=== PATIENT | female | born 1935 | race Asian ===

== ENCOUNTER 2016-10-24 05:52 | Inpatient (IN) | payer MEDICARE, OTHER ==
[2016-10-24 06:44] LABS: ABSOLUTE LYMPHOCYTES (AUTO) 0.9 10^3/uL (0.5-4.7); ABSOLUTE MONOCYTES (AUTO) 0.8 10^3/uL (0.1-1.4); ABSOLUTE NEUT (AUTO) 10.2 10^3/uL (1.7-8.2); BASOPHILS % (AUTO) 0.2 % (0-2); HEMATOCRIT 28.8 % (36.0-47.0); HEMOGLOBIN 9.3 g/dL (12.0-15.5); HGB HCT DIFFERENCE -0.9; LYMPHOCYTES % (AUTO) 7.8 % (13-45); MEAN CORPUSCULAR HEMOGLOBIN 31.8 pg (27.0-33.4); MEAN CORPUSCULAR HGB CONC 32.1 g/dL (32.0-36.0); MEAN CORPUSCULAR VOLUME 99 fl (80-97); MONOCYTES % (AUTO) 6.7 % (3-13); RED BLOOD COUNT 2.91 10^6/uL (3.72-5.28); RED CELL DISTRIBUTION WIDTH 13.6 % (11.5-14.0); SEGMENTED NEUTROPHILS % (AUTO) 85.3 % (42-78); WHITE BLOOD COUNT 11.9 10^3/uL (4.0-10.5)
[2016-10-24] MEDS ORDERED: ONDANSETRON HCL INJ/PF 4 MG/2 ML SDV IV ONE (07:04)
[2016-10-24] MEDS ORDERED: ONDANSETRON HCL INJ/PF 4 MG/2 ML SDV ONE (07:05)
[2016-10-24 07:08] LABS: ALANINE AMINOTRANSFERASE 45 U/L (9-52); ALBUMIN 3.1 g/dL (3.5-5.0); ALKALINE PHOSPHATASE 144 U/L (38-126); ANION GAP 13 (5-19); ASPARTATE AMINO TRANSFERASE 51 U/L (14-36); BILIRUBIN,TOTAL 0.7 mg/dL (0.2-1.3); BLOOD UREA NITROGEN 20 mg/dL (7-20); CALCIUM 8.5 mg/dL (8.4-10.2); CARBON DIOXIDE 28 mmol/L (22-30); CHLORIDE 98 mmol/L (98-107); CREATININE RESULT 0.62 mg/dL (0.52-1.25); GLUCOSE 132 mg/dL (75-110); POTASSIUM 4.4 mmol/L (3.6-5.0); SODIUM 138.6 mmol/L (137-145); TOTAL PROTEIN 5.6 g/dL (6.3-8.2)
--- NOTE | 2016-10-24 07:14 | ER Document Report ---
ED General - General Chief Complaint: Hip Injury Stated Complaint: FALL/LEG INJURY Mode of Arrival: Medic Information source: Patient, Outside Facility Records Notes: 81 yr old female presents with complaints of right hip pain after mechanical fall. pt noted to have hip fracture and transferred here from [facility] for evaluation by her orthopedic physician. TRAVEL OUTSIDE OF THE [place] IN LAST 30 DAYS: No - HPI Onset: Yesterday Onset/Duration: Sudden Quality of pain: Achy Severity: Moderate Pain Level: 2 Associated symptoms: Nausea Exacerbated by: Movement Relieved by: Denies Similar symptoms previously: Yes Recently seen / treated by doctor: Yes - Related Data Allergies/Adverse Reactions: codeine [Codeine] Allergy (Verified 08/24/15 15:01) Vomiting Past Medical History - Social History Smoking Status: Never Smoker Cigarette use (# per day): No Chew tobacco use (# tins/day): No Smoking Education Provided: No Family History: Hypertension - Past Medical History Cardiac Medical History: Reports: Hx Hypercholesterolemia, Hx Hypertension Denies: Hx Coronary Artery Disease, Hx Heart Attack Pulmonary Medical History: Reports: Hx COPD, Hx Pneumonia Denies: Hx Asthma, Hx Bronchitis, Hx Tuberculosis Neurological Medical History: Denies: Hx Cerebrovascular Accident, Hx Seizures GI Medical History: Denies: Hx Hepatitis, Hx Hiatal Hernia, Hx Ulcer Musculoskeltal Medical History: Reports Hx Arthritis Infectious Medical History: Denies: Hx Hepatitis Past Surgical History: Reports: Hx Section, Hx Orthopedic Surgery - orif left femur. Denies: Hx Mastectomy, Hx Open Heart Surgery, Hx Pacemaker - Immunizations Hx Diphtheria, Pertussis, Tetanus Vaccination: Yes Hx Pneumococcal Vaccination: 08/06/14 Review of Systems - Review of Systems Notes: REVIEW OF SYSTEMS: CONSTITUTIONAL : Denies fever, chills, or sweats. Denies recent illness. EENT: Denies eye, ear, throat, or mouth pain or symptoms. Denies nasal or sinus congestion or discharge. Denies throat, tongue, or mouth swelling or difficulty swallowing. CARDIOVASCULAR: Denies chest pain. Denies palpitations or racing or irregular heart beat. Denies ankle edema. RESPIRATORY: Denies cough, cold, or chest congestion. Denies shortness of breath, difficulty breathing, or wheezing. GASTROINTESTINAL: Admits to nausea GENITOURINARY: Denies difficulty urinating, painful urination, burning, frequency, blood in urine, or discharge. FEMALE GENITOURINARY: Denies vaginal bleeding, heavy or abnormal periods, irregular periods. Denies vaginal discharge or odor. MUSCULOSKELETAL: Admits to right hip pain SKIN: Denies rash, lesions or sores. HEMATOLOGIC : Denies easy bruising or bleeding. LYMPHATIC: Denies swollen, enlarged glands. NEUROLOGICAL: Denies confusion or altered mental status. Denies passing out or loss of consciousness. Denies dizziness or lightheadedness. Denies headache. Denies weakness or paralysis or loss of use of either side. Denies problems with gait or speech. Denies sensory loss, numbness, or tingling. Denies seizures. PSYCHIATRIC: Denies anxiety or stress. Denies depression, suicidal ideation, or homicidal ideation. ALL OTHER SYSTEMS REVIEWED AND NEGATIVE. Dictation was performed using [employer] voice recognition software PHYSICAL EXAMINATION: GENERAL: Frail elderly female no acute distress HEAD: Atraumatic, normocephalic. EYES: Pupils equal round and reactive to light, extraocular movements intact, conjunctiva are normal. ENT: Nares patent, oropharynx clear without exudates. Moist mucous membranes. NECK: Normal range of motion, supple without lymphadenopathy LUNGS: Breath sounds clear to auscultation bilaterally and equal. No wheezes rales or rhonchi. HEART: Regular rate and rhythm without murmurs ABDOMEN: Soft, nontender, nondistended abdomen. No guarding, no rebound. No masses appreciated. Female : deferred Musculoskeletal: Right hip deformity noted NEUROLOGICAL: Cranial nerves grossly intact. Normal speech, normal gait. Normal sensory, motor exams PSYCH: Normal mood, normal affect. SKIN: Warm, Dry, normal turgor, no rashes or lesions noted. Course - Re-evaluation Re-evalutation: 10/24/16 07:18 Patient was evaluated by her orthopedic physician, I have paged her primary care physician for admission lab work imaging note no other significant abnormalities at this time - Laboratory Result Diagrams: 10/24/16 06:20 10/24/16 06:20 Laboratory results interpreted by me: 10/24/16 10/24/16 06:20 06:20 WBC 11.9 H RBC 2.91 L Hgb 9.3 L Hct 28.8 L MCV 99 H Seg Neutrophils % 85.3 H Lymphocytes % 7.8 L Absolute Neutrophils 10.2 H Glucose 132 H AST 51 H Alkaline Phosphatase 144 H Total Protein 5.6 L Albumin 3.1 L - EKG Interpretation by Me EKG shows normal: Sinus rhythm, [place], Intervals, QRS Complexes [place]/QRS: RBBB Discharge - Discharge Clinical Impression: Nausea Closed fracture of right hip Qualifiers: Encounter type: initial encounter Qualified Code(s): S72.001A - Fracture of unspecified part of neck of right femur, initial encounter for closed fracture Condition: Stable Disposition: ADMITTED INPATIENT Admitting Provider: [facility] Admitted: Telemetry
[2016-10-24 07:55] LABS: PROTHROMBIN TIME 13.9 SEC (11.4-15.4)
[2016-10-24 07:56] LABS: PARTIAL THROMBOPLASTIN TIME 21.3 SEC (23.5-35.8)
--- NOTE | 2016-10-24 08:10 | EKG REPORT ---
SEVERITY:- ABNORMAL ECG - SINUS RHYTHM RIGHT BUNDLE BRANCH BLOCK + LPFB : Confirmed by: Justin Huynh MD 24-Oct-2016 08:09:55
[2016-10-24] MEDS ORDERED: NORMAL SALINE 1000 ML 1,000 ML IV PRN (08:56)
--- NOTE | 2016-10-24 09:35 | PDOC H&P ---
History of Present Illness Admission Date/PCP: 10/24/16 07:32 Patient complains of: pain R hip History of Present Illness: SANDIE BRYSON is a 81 year old female. 2d slipped in bathroom onto R hip. [employer] xr intertrochanteric fracture. Dr Kirkland agreed to fix. 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 Denies: Asthma, Bronchitis, Tuberculosis EENT Medical History: Reports: None Neurological Medical History: Reports: None Endocrine Medical History: Reports: None Renal/ Medical History: Reports: Nephrolithiasis Malignancy Medical History: Reports: None GI Medical History: Denies: Hepatitis, Peptic Ulcer Disease Musculoskeltal Medical History: Reports: Arthritis, Other - compresstion fractures T8 to L5 x T10 on reclast Psychiatric Medical History: Reports: None Traumatic Medical History: Reports: None Hematology: Reports: None Infectious Medical History: Reports: None Past Surgical History Past Surgical History: Reports: Section, Orthopedic Surgery - orif left femur, Other - L pneumonectomy Denies: Amputation, Mastectomy, Pacemaker Social History Information Source: Office Lives with: Alone Smoking Status: Never Smoker Frequency of Alcohol Use: Occasional Hx Recreational Drug Use: No Hx Prescription Drug Abuse: No Family History Family History: CVA, Hypertension Parental Family History Reviewed: Yes Children Family History Reviewed: Yes Sibling(s) Family History Reviewed.: Yes Medication/Allergy Home Medications: Albuterol Sulfate [Ventolin 0.042% Neb 1.25 mg/3 mL Ampul] 2 puff IH QID PRN Latanoprost [Xalatan 0.005% Oph Soln 2.5 ml] 1 drop OP QHS 06/03/14 Tiotropium [place] [Spiriva Handihaler 18 mcg/dose (30 Dose)] 18 mcg PO DAILY Diltiazem HCl [Diltiazem ER] 120 mg PO DAILY 03/08/15 Atorvastatin Calcium 20 mg PO DAILY 10/24/16 Fluticasone/Salmeterol [Advair 250-50 Diskus 28 dose] 1 inh IH Q12H 10/24/16 Tiotropium [place] [Spiriva Handihaler 18 mcg/dose (30 Dose)] 1 cap IH DAILY Allergies/Adverse Reactions: codeine [Codeine] Allergy (Verified 08/24/15 15:01) Vomiting Review of Systems Constitutional: PRESENT: weight loss. ABSENT: fever(s), headache(s) Nose, Mouth, and Throat: ABSENT: sore throat Cardiovascular: PRESENT: dyspnea on exertion. ABSENT: chest pain, orthropnea Respiratory: PRESENT: cough Gastrointestinal: PRESENT: nausea. ABSENT: abdominal pain, constipation, diarrhea, hematochezia, melena Genitourinary: ABSENT: dysuria, hematuria Musculoskeletal: PRESENT: deformity - RH Integumentary: PRESENT: wounds - RE abrasion Neurological: PRESENT: as per HPI Physical Exam Vital Signs: Temp Pulse Resp BP Pulse Ox 97.5 F 90 20 124/55 L 100 10/24/16 08:48 10/24/16 08:48 10/24/16 08:48 10/24/16 08:48 10/24/16 08:48 General appearance: PRESENT: no acute distress Neck exam: PRESENT: tracheal deviation - R. ABSENT: lymphadenopathy, tenderness , thyromegaly Respiratory exam: PRESENT: clear to auscultation home, other - decreased L breath sound Cardiovascular exam: PRESENT: systolic murmur - gr2 difuse. ABSENT: diastolic murmur, irregular rhythm Murmur grade: 2 GI/Abdominal exam: PRESENT: other - bladder big. ABSENT: mass, organolmegaly, tenderness Musculoskeletal exam: PRESENT: deformity - R foot everted, tenderness - R hip Neurological exam: PRESENT: alert, oriented to situation Psychiatric exam: PRESENT: appropriate affect Skin exam: PRESENT: abrasion - R elbow Results Laboratory Results: Abnormal - 24 hr 10/24/16 10/24/16 10/24/16 06:20 06:20 06:20 WBC 11.9 H RBC 2.91 L Hgb 9.3 L Hct 28.8 L MCV 99 H Seg Neutrophils % 85.3 H Lymphocytes % 7.8 L Absolute Neutrophils 10.2 H APTT 21.3 L Glucose 132 H AST 51 H Alkaline Phosphatase 144 H Total Protein 5.6 L Albumin 3.1 L Impressions: Chest X-Ray 10/24/16 06:06 IMPRESSION: NO ACUTE RADIOGRAPHIC FINDING IN THE CHEST. Assessment & Plan - Diagnosis (1) Closed displaced intertrochanteric fracture of right femur Qualifiers: Encounter type: initial encounter Qualified Code(s): S72.141A - Displaced intertrochanteric fracture of right femur, initial encounter for closed fracture Is this a current diagnosis for this admission?: YesPlan: surgery tomorrow annia bryant
[2016-10-24] MEDS ORDERED: OXYCODONE-ACETAMINOPHEN 5-325 MG TABLET PO PRN (10:07)
[2016-10-24] MEDS: FAMOTIDINE INJ/PF 20 MG/2 ML SDV IV SCH ×2 (10:31→22:01)
[2016-10-24] MEDS: OXYCODONE-ACETAMINOPHEN 5-325 MG TABLET PO PRN ×2 (15:37→19:25)
[2016-10-24] MEDS: ONDANSETRON HCL INJ/PF 4 MG/2 ML SDV IV PRN (19:24)
[2016-10-25] MEDS ORDERED: RINGERS SOLUTION,LACTATED 1,000 ML IV PRN
[2016-10-25] MEDS: OXYCODONE-ACETAMINOPHEN 5-325 MG TABLET PO PRN (01:54)
[2016-10-25] MEDS: ONDANSETRON HCL INJ/PF 4 MG/2 ML SDV IV PRN (01:56)
[2016-10-25] MEDS ORDERED: CEFAZOLIN 2 GM/D5W RTU 2 GM/50 ML RTUPB IV PRN (05:00)
--- NOTE | 2016-10-25 06:31 | PDOC PROGRESS REPORT ---
Subjective Progress Note for:: 10/25/16 Subjective:: Patient grateful for the care she is receiving Physical Exam Vital Signs: Temp Pulse Resp BP Pulse Ox 36.9 C 96 20 128/57 H 99 10/25/16 05:52 10/25/16 05:52 10/25/16 05:52 10/25/16 05:52 10/25/16 05:52 Intake & Output 10/23/16 10/24/16 10/25/16 06:59 06:59 06:59 Intake Total 600 Output Total 630 Balance -30 Weight 43 kg General appearance: PRESENT: mild distress Respiratory exam: PRESENT: unlabored Murmur grade: 2 Pulses: PRESENT: +1 pedal pulses bilateral GI/Abdominal exam: PRESENT: soft Results Impressions: Chest X-Ray 10/24/16 06:06 IMPRESSION: NO ACUTE RADIOGRAPHIC FINDING IN THE CHEST. Assessment & Plan - Diagnosis (1) Closed displaced intertrochanteric fracture of right femur Qualifiers: Encounter type: initial encounter Qualified Code(s): S72.141A - Displaced intertrochanteric fracture of right femur, initial encounter for closed fracture Is this a current diagnosis for this admission?: YesPlan: Plan for open reduction internal fixation of her right intratrochanteric femur fracture. Today under choice anesthesia - Time Time Spent with patient: 15-24 minutes Anticipated discharge: SNF Within: within 48 hours
--- NOTE | 2016-10-25 07:06 | PDOC PROGRESS REPORT ---
Subjective Progress Note for:: 10/25/16 Subjective:: pain controlled Physical Exam Vital Signs: Temp Pulse Resp BP Pulse Ox 98.4 F 96 20 128/57 H 99 10/25/16 05:52 10/25/16 05:52 10/25/16 05:52 10/25/16 05:52 10/25/16 05:52 Intake & Output 10/23/16 10/24/16 10/25/16 07:59 07:59 07:59 Intake Total 600 Output Total 630 Balance -30 Weight 94 lb 12.78 oz General appearance: PRESENT: no acute distress Respiratory exam: PRESENT: clear to auscultation home Cardiovascular exam: ABSENT: diastolic murmur, irregular rhythm, systolic murmur Murmur grade: 2 GI/Abdominal exam: ABSENT: mass, organolmegaly, tenderness Extremities exam: ABSENT: pedal edema Neurological exam: PRESENT: oriented to situation Psychiatric exam: PRESENT: appropriate affect Results Laboratory Results: Abnormal - 24 hr 10/24/16 10/24/16 06:20 06:20 APTT 21.3 L Glucose 132 H AST 51 H Alkaline Phosphatase 144 H Total Protein 5.6 L Albumin 3.1 L Impressions: Chest X-Ray 10/24/16 06:06 IMPRESSION: NO ACUTE RADIOGRAPHIC FINDING IN THE CHEST. Assessment & Plan - Diagnosis (1) Closed displaced intertrochanteric fracture of right femur Qualifiers: Encounter type: initial encounter Qualified Code(s): S72.141A - Displaced intertrochanteric fracture of right femur, initial encounter for closed fracture Is this a current diagnosis for this admission?: YesPlan: orif
[2016-10-25] MEDS ORDERED: MIDAZOLAM 2 MG/2 ML INJ ONE (07:27)
[2016-10-25] MEDS ORDERED: PROPOFOL INJ 200 MG/20 ML VIAL IV ONE (07:28)
[2016-10-25] MEDS ORDERED: DEXMEDETOMIDINE INJ 80 MCG/20 ML VIAL IV ONE (07:28)
[2016-10-25] MEDS ORDERED: ACETAMINOPHEN 100 ML IV ONE (07:28)
[2016-10-25] MEDS ORDERED: FENTANYL CITRATE INJ/PF 100 MCG/2 ML AMPUL ONE (07:29)
[2016-10-25] MEDS ORDERED: MORPHINE SULFATE 10 MG/ML INJ ONE (07:29)
[2016-10-25] MEDS ORDERED: MEPERIDINE HCL/PF INJ 25 MG/1 ML DISP.SYRIN IV PRN (08:40)
[2016-10-25] MEDS ORDERED: DIPHENHYDRAMINE HCL 50 MG/ML VIAL IV PRN (08:40)
[2016-10-25] MEDS ORDERED: FENTANYL CITRATE INJ/PF 100 MCG/2 ML AMPUL IV PRN ×3 (08:40)
[2016-10-25] MEDS ORDERED: OXYCODONE-ACETAMINOPHEN 5-325 MG TABLET PO PRN ×2 (08:40)
[2016-10-25] MEDS ORDERED: MORPHINE SULFATE 10 MG/ML INJ IV PRN ×3 (08:40→20:00)
[2016-10-25] MEDS ORDERED: PROMETHAZINE HCL INJ 25 MG/1 ML VIAL IV PRN ×2 (08:40)
--- NOTE | 2016-10-25 09:00 | Operative Report ---
Operative Report DATE OF SURGERY: 10/25/16 PREOPERATIVE DIAGNOSIS: Right proximal femur fracture OPERATION: Open reduction internal fixation of right proximal femur fracture SURGEON: MAIRA MCCRACKEN ANESTHESIA: GA ESTIMATED BLOOD LOSS: 200 PROCEDURE: With the patient supine on the fracture table the right lower extremity is prepped and draped in sterile fashion. The limb is manipulated under fluoroscopic guidance. It's relatively easy to get an anatomic reduction in the AP view but and a lateral view. There is a significant amount of flexion of the proximal fragment. Due to the psoas remaining attached. The patient is placed percutaneously through the greater trochanter. A small incision is made and a combined reamers. Fat used to fashion a cortical opening. Next longitudinal incision was made just distal to the trochanteric ridge. Under direct visualization a reduction of the flexed proximal fragment and elevation of the lagging posterior fragment or perform such that a ball- tipped guidewire can be placed across the fracture. Femoral canal length is measured to be 320 mm. Subsequently a Christa gamma 3 11 x 3 20 x 130 nail was placed over the ball-tipped guide cordelia to divide adequate depth the proximal interlock. Subsequently a 100 mm proximal interlock is placed. Under freehand with fluoroscopic guidance a 45 mm distal interlock is placed. All wounds irrigated and closed using interrupted Vicryl followed by go. A sterile dressing is applied and the patient's returned to PACU in satisfactory condition.
[2016-10-25] MEDS: FAMOTIDINE INJ/PF 20 MG/2 ML SDV IV SCH ×2 (10:12→22:54)
[2016-10-25] MEDS ORDERED: METOCLOPRAMIDE HCL INJ/PF 10 MG/2 ML SDV ONE (13:51)
[2016-10-25] MEDS ORDERED: PHENYLEPHRINE HCL INJ/PF 10 MG/1 ML SDV ONE (13:51)
[2016-10-25] MEDS ORDERED: ONDANSETRON HCL INJ/PF 4 MG/2 ML SDV ONE (13:51)
[2016-10-25] MEDS ORDERED: LIDOCAINE 2% INJ-PF (20 MG/ML) 10 ML AMPUL ONE (13:51)
[2016-10-25] MEDS ORDERED: GLYCOPYRROLATE INJ 0.4 MG/2 ML VIAL ONE (13:51)
[2016-10-25] MEDS: CEFAZOLIN 2 GM/D5W RTU 2 GM/50 ML RTUPB IV SCH ×2 (15:45→23:32)
[2016-10-25] MEDS: ACETAMINOPHEN 100 ML IV SCH ×2 (15:45→22:50)
[2016-10-25] MEDS: MORPHINE SULFATE 10 MG/ML INJ IV PRN (23:56)
[2016-10-26] MEDS ORDERED: FUROSEMIDE INJ/PF 20 MG/2 ML SDV ONE ×2 (02:15→22:24)
[2016-10-26] MEDS: MORPHINE SULFATE 10 MG/ML INJ IV PRN ×2 (04:45→23:08)
[2016-10-26 06:08] LABS: ABSOLUTE MONOCYTES (AUTO) 1.1 10^3/uL (0.1-1.4); ABSOLUTE NEUT (AUTO) 7.6 10^3/uL (1.7-8.2); BASOPHILS % (AUTO) 0.2 % (0-2); HEMATOCRIT 15.6 % (36.0-47.0); HGB HCT DIFFERENCE -0.3; LYMPHOCYTES % (AUTO) 10.3 % (13-45); MEAN CORPUSCULAR HEMOGLOBIN 32.5 pg (27.0-33.4); MEAN CORPUSCULAR HGB CONC 32.4 g/dL (32.0-36.0); MEAN CORPUSCULAR VOLUME 100 fl (80-97); MONOCYTES % (AUTO) 11.1 % (3-13); RED BLOOD COUNT 1.56 10^6/uL (3.72-5.28); SEGMENTED NEUTROPHILS % (AUTO) 78.4 % (42-78); WHITE BLOOD COUNT 9.7 10^3/uL (4.0-10.5)
[2016-10-26 06:22] LABS: ANION GAP 8 (5-19); BLOOD UREA NITROGEN 22 mg/dL (7-20); CALCIUM 7.5 mg/dL (8.4-10.2); CARBON DIOXIDE 28 mmol/L (22-30); CHLORIDE 99 mmol/L (98-107); GLUCOSE 107 mg/dL (75-110); POTASSIUM 4.6 mmol/L (3.6-5.0); SODIUM 134.7 mmol/L (137-145)
[2016-10-26] MEDS: OXYCODONE HCL IR 5 MG TABLET PO PRN (06:35)
[2016-10-26] MEDS ORDERED: RINGERS SOLUTION,LACTATED 1,000 ML IV PRN (07:03)
--- NOTE | 2016-10-26 07:09 | PDOC PROGRESS REPORT ---
Subjective Progress Note for:: 10/26/16 Subjective:: R hip pain Physical Exam Vital Signs: Temp Pulse Resp BP Pulse Ox 97.9 F 120 H 28 H 121/60 95 10/26/16 02:07 10/26/16 02:07 10/26/16 02:07 10/26/16 02:07 10/26/16 02:07 Intake & Output 10/24/16 10/25/16 10/26/16 07:59 07:59 07:59 Intake Total 600 4160 Output Total 630 1325 Balance -30 2835 Weight 94 lb 12.78 oz General appearance: PRESENT: no acute distress Respiratory exam: PRESENT: clear to auscultation home Cardiovascular exam: PRESENT: systolic murmur. ABSENT: diastolic murmur, irregular rhythm Murmur grade: 3 Pulses: PRESENT: +1 pedal pulses bilateral GI/Abdominal exam: ABSENT: mass, organolmegaly, tenderness Extremities exam: PRESENT: joint swelling - R hip hematoma:bruise & swelling twice the size of L hip. ABSENT: pedal edema Neurological exam: ABSENT: oriented to situation Results Laboratory Results: 10/26/16 05:31 10/26/16 05:31 Sodium 134.7 L Potassium 4.6 Chloride 99 Carbon Dioxide 28 Anion Gap 8 BUN 22 H Creatinine 0.80 Est GFR ( Amer) > 60 Est GFR (Non-Af Amer) > 60 Glucose 107 Calcium 7.5 L Impressions: Chest X-Ray 10/24/16 06:06 IMPRESSION: NO ACUTE RADIOGRAPHIC FINDING IN THE CHEST. Fluoroscopy 10/25/16 00:00 IMPRESSION: Intra procedural imaging and fluoro Hip X-Ray 10/25/16 00:00 IMPRESSION: Intra procedural imaging and fluoro Assessment & Plan - Diagnosis (1) Closed displaced intertrochanteric fracture of right femur Qualifiers: Encounter type: initial encounter Qualified Code(s): S72.141A - Displaced intertrochanteric fracture of right femur, initial encounter for closed fracture Is this a current diagnosis for this admission?: YesPlan: suspect hematoma. May need prbc when lab done (2) Dyspnea Qualifiers: Dyspnea type: shortness of breath Qualified Code(s): R06.02 - Shortness of breath Is this a current diagnosis for this admission?: YesPlan: R28 till furosemide 20iv. No rales. I slowed iv to 100
[2016-10-26 07:18] LABS: HEMOGLOBIN 5.1 g/dL (12.0-15.5)
[2016-10-26] MEDS ORDERED: NORMAL SALINE 250 ML IV PRN (07:21)
--- NOTE | 2016-10-26 07:56 | PDOC PROGRESS REPORT ---
Subjective Progress Note for:: 10/26/16 Subjective:: Patient had significant pain last night but seems to be much more comfortable this morning Physical Exam Vital Signs: Temp Pulse Resp BP Pulse Ox 36.6 C 120 H 28 H 121/60 95 10/26/16 02:07 10/26/16 02:07 10/26/16 02:07 10/26/16 02:07 10/26/16 02:07 Intake & Output 10/25/16 10/26/16 10/27/16 06:59 06:59 06:59 Intake Total 600 4160 Output Total 630 1325 Balance -30 2835 Weight 43 kg General appearance: PRESENT: mild distress Head exam: PRESENT: normocephalic Eye exam: PRESENT: EOMI Respiratory exam: PRESENT: unlabored Cardiovascular exam: PRESENT: RRR Murmur grade: 3 Pulses: PRESENT: +1 pedal pulses bilateral Vascular exam: PRESENT: normal capillary refill GI/Abdominal exam: PRESENT: soft Rectal exam: PRESENT: deferred Extremities exam: PRESENT: other - Right lower extremity dressings with moderate drainage, and that have been reinforced. Leg lengths are equal. Neurovascular examinations intact. Neurological exam: PRESENT: alert, oriented to person, oriented to place, oriented to situation Psychiatric exam: PRESENT: appropriate affect Results Laboratory Results: 10/26/16 05:31 10/26/16 05:31 10/26/16 10/26/16 05:31 05:31 WBC 9.7 RBC 1.56 L Hgb 5.1 L D Hct 15.6 L MCV 100 H MCH 32.5 MCHC 32.4 RDW 14.0 Plt Count 221 Seg Neutrophils % 78.4 H Lymphocytes % 10.3 L Monocytes % 11.1 Eosinophils % 0.0 Basophils % 0.2 Absolute Neutrophils 7.6 Absolute Lymphocytes 1.0 Absolute Monocytes 1.1 Absolute Eosinophils 0.0 Absolute Basophils 0.0 Sodium 134.7 L Potassium 4.6 Chloride 99 Carbon Dioxide 28 Anion Gap 8 BUN 22 H Creatinine 0.80 Est GFR ( Amer) > 60 Est GFR (Non-Af Amer) > 60 Glucose 107 Calcium 7.5 L Impressions: Chest X-Ray 10/24/16 06:06 IMPRESSION: NO ACUTE RADIOGRAPHIC FINDING IN THE CHEST. Fluoroscopy 10/25/16 00:00 IMPRESSION: Intra procedural imaging and fluoro Hip X-Ray 10/25/16 00:00 IMPRESSION: Intra procedural imaging and fluoro Status: Imported from PACS Assessment & Plan - Diagnosis (1) Closed displaced intertrochanteric fracture of right femur Qualifiers: Encounter type: initial encounter Qualified Code(s): S72.141A - Displaced intertrochanteric fracture of right femur, initial encounter for closed fracture Is this a current diagnosis for this admission?: YesPlan: 81-year-old female postop day 1 from right proximal femoral fracture open reduction internal fixation. Plan for mobilization with physical therapy and weightbearing as tolerated basis. (2) Acute blood loss as cause of postoperative anemia Is this a current diagnosis for this admission?: YesPlan: 81-year-old female status post open reduction internal fixation of a right proximal femur fracture now with a postoperative hematocrit of 15%. As a result of preoperative hematoma, intraoperative blood loss, and postoperative blood loss and hematoma. Plan for transfusion of 2 units of packed red blood cells. - Time Time Spent with patient: 15-24 minutes Anticipated discharge: SNF Within: within 72 hours
[2016-10-26] MEDS: FAMOTIDINE INJ/PF 20 MG/2 ML SDV IV SCH ×2 (10:51→23:10)
[2016-10-26 22:11] LABS: ABSOLUTE LYMPHOCYTES (AUTO) 1.1 10^3/uL (0.5-4.7); ABSOLUTE MONOCYTES (AUTO) 1.4 10^3/uL (0.1-1.4); ABSOLUTE NEUT (AUTO) 9.8 10^3/uL (1.7-8.2); BASOPHILS % (AUTO) 0.1 % (0-2); HGB HCT DIFFERENCE 0.1; LYMPHOCYTES % (AUTO) 8.7 % (13-45); MEAN CORPUSCULAR HEMOGLOBIN 31.7 pg (27.0-33.4); MEAN CORPUSCULAR HGB CONC 33.3 g/dL (32.0-36.0); MONOCYTES % (AUTO) 11.4 % (3-13); RED BLOOD COUNT 2.73 10^6/uL (3.72-5.28); RED CELL DISTRIBUTION WIDTH 15.1 % (11.5-14.0); SEGMENTED NEUTROPHILS % (AUTO) 79.8 % (42-78); WHITE BLOOD COUNT 12.2 10^3/uL (4.0-10.5)
[2016-10-26 22:20] LABS: HEMOGLOBIN 8.7 g/dL (12.0-15.5); MEAN CORPUSCULAR VOLUME 95 fl (80-97)
[2016-10-26] MEDS ORDERED: FUROSEMIDE INJ/PF 20 MG/2 ML SDV IV ONE (22:30)
[2016-10-27] MEDS: OXYCODONE HCL IR 5 MG TABLET PO PRN ×3 (05:01→18:07)
--- NOTE | 2016-10-27 06:33 | PDOC PROGRESS REPORT ---
Subjective Progress Note for:: 10/27/16 Subjective:: sleeping Physical Exam Vital Signs: Temp Pulse Resp BP Pulse Ox 98.1 F 114 H 20 115/57 L 100 10/27/16 00:34 10/27/16 02:00 10/27/16 00:34 10/27/16 00:34 10/27/16 00:34 Intake & Output 10/25/16 10/26/16 10/27/16 07:59 07:59 07:59 Intake Total 600 4515 1362 Output Total 630 1925 900 Balance -30 2590 462 Weight 94 lb 12.78 oz 107 lb 12.897 oz 107 lb 5.842 oz General appearance: PRESENT: no acute distress Respiratory exam: PRESENT: clear to auscultation home Cardiovascular exam: PRESENT: systolic murmur. ABSENT: diastolic murmur, irregular rhythm Murmur grade: 2 GI/Abdominal exam: ABSENT: mass, organolmegaly, tenderness Extremities exam: PRESENT: joint swelling - hematoma L hip smaller. ABSENT: pedal edema Results Laboratory Results: 10/26/16 21:12 10/26/16 05:31 10/26/16 10/26/16 10/26/16 05:31 05:31 08:04 WBC 9.7 RBC 1.56 L Hgb 5.1 L D Hct 15.6 L MCV 100 H MCH 32.5 MCHC 32.4 RDW 14.0 Plt Count 221 Seg Neutrophils % 78.4 H Lymphocytes % 10.3 L Monocytes % 11.1 Eosinophils % 0.0 Basophils % 0.2 Absolute Neutrophils 7.6 Absolute Lymphocytes 1.0 Absolute Monocytes 1.1 Absolute Eosinophils 0.0 Absolute Basophils 0.0 Sodium 134.7 L Potassium 4.6 Chloride 99 Carbon Dioxide 28 Anion Gap 8 BUN 22 H Creatinine 0.80 Est GFR ( Amer) > 60 Est GFR (Non-Af Amer) > 60 Glucose 107 Calcium 7.5 L Blood Type A POSITIVE Antibody Screen NEGATIVE 10/26/16 21:12 WBC 12.2 H RBC 2.73 L Hgb 8.7 L D Hct 26.0 L MCV 95 D MCH 31.7 MCHC 33.3 RDW 15.1 H Plt Count 206 Seg Neutrophils % 79.8 H Lymphocytes % 8.7 L Monocytes % 11.4 Eosinophils % 0.0 Basophils % 0.1 Absolute Neutrophils 9.8 H Absolute Lymphocytes 1.1 Absolute Monocytes 1.4 Absolute Eosinophils 0.0 Absolute Basophils 0.0 Sodium Potassium Chloride Carbon Dioxide Anion Gap BUN Creatinine Est GFR ( Amer) Est GFR (Non-Af Amer) Glucose Calcium Blood Type Antibody Screen Impressions: Chest X-Ray 10/24/16 06:06 IMPRESSION: NO ACUTE RADIOGRAPHIC FINDING IN THE CHEST. Fluoroscopy 10/25/16 00:00 IMPRESSION: Intra procedural imaging and fluoro Hip X-Ray 10/25/16 00:00 IMPRESSION: Intra procedural imaging and fluoro Assessment & Plan - Diagnosis (1) Closed displaced intertrochanteric fracture of right femur Qualifiers: Encounter type: initial encounter Qualified Code(s): S72.141A - Displaced intertrochanteric fracture of right femur, initial encounter for closed fracture Is this a current diagnosis for this admission?: YesPlan: ripped off bloody dressings. Hct29,16. 2u prbc. Hct26. Rales tachypnea. Furosemide 20iv. Now clear. Hct pending. (2) Dyspnea Qualifiers: Dyspnea type: shortness of breath Qualified Code(s): R06.02 - Shortness of breath Is this a current diagnosis for this admission?: YesPlan: resumed spiriva and symbicort
--- NOTE | 2016-10-27 10:03 | PDOC PROGRESS REPORT ---
Subjective Progress Note for:: 10/27/16 Subjective:: Patient's complaining about confinement to bed as opposed to complaining of pain Physical Exam Vital Signs: Temp Pulse Resp BP Pulse Ox 36.9 C 93 22 H 139/57 H 100 10/27/16 07:45 10/27/16 07:45 10/27/16 07:45 10/27/16 07:45 10/27/16 07:45 Intake & Output 10/26/16 10/27/16 10/28/16 06:59 06:59 06:59 Intake Total 4515 1362 Output Total 1925 900 Balance 2590 462 Weight 48.9 kg 48.7 kg General appearance: PRESENT: mild distress Head exam: PRESENT: normocephalic Murmur grade: 2 Pulses: PRESENT: +1 pedal pulses bilateral Vascular exam: PRESENT: normal capillary refill GI/Abdominal exam: PRESENT: soft Extremities exam: PRESENT: other - Right lower extremity dressings changed. Wounds are well approximated with go. The serous drainage from all 3 sites. There is extensive ecchymosis that extends the proximal thigh over into the labia. Neurological exam: PRESENT: alert, awake Results Laboratory Results: 10/26/16 21:12 10/26/16 05:31 10/26/16 10/26/16 08:04 21:12 WBC 12.2 H RBC 2.73 L Hgb 8.7 L D Hct 26.0 L MCV 95 D MCH 31.7 MCHC 33.3 RDW 15.1 H Plt Count 206 Seg Neutrophils % 79.8 H Lymphocytes % 8.7 L Monocytes % 11.4 Eosinophils % 0.0 Basophils % 0.1 Absolute Neutrophils 9.8 H Absolute Lymphocytes 1.1 Absolute Monocytes 1.4 Absolute Eosinophils 0.0 Absolute Basophils 0.0 Blood Type A POSITIVE Antibody Screen NEGATIVE Impressions: Chest X-Ray 10/24/16 06:06 IMPRESSION: NO ACUTE RADIOGRAPHIC FINDING IN THE CHEST. Fluoroscopy 10/25/16 00:00 IMPRESSION: Intra procedural imaging and fluoro Hip X-Ray 10/25/16 00:00 IMPRESSION: Intra procedural imaging and fluoro Assessment & Plan - Diagnosis (1) Closed displaced intertrochanteric fracture of right femur Qualifiers: Encounter type: initial encounter Qualified Code(s): S72.141A - Displaced intertrochanteric fracture of right femur, initial encounter for closed fracture Is this a current diagnosis for this admission?: YesPlan: 81-year-old female status post open reduction internal fixation of her right proximal femur fracture. There is extensive swelling, ecchymosis and moderate serous drainage from the wounds that reflect both the original injury as well as the insult of the surgery. I think the dressings can be changed as needed. Patient can be mobilized with physical therapy and weightbearing as tolerated basis. (2) Acute blood loss as cause of postoperative anemia Is this a current diagnosis for this admission?: YesPlan: Current hematocrit is 26% after the transfusion - Time Time Spent with patient: 15-24 minutes Anticipated discharge: SNF Within: when bed available
[2016-10-27] MEDS: BUDESONIDE/FORMOTEROL 160-4.5 MCG 60 PUFF/6 GM MDI IH SCH ×2 (10:38→18:07)
[2016-10-27] MEDS: FAMOTIDINE INJ/PF 20 MG/2 ML SDV IV SCH ×2 (10:38→21:39)
[2016-10-27] MEDS: LUBIPROSTONE 24 MCG CAPSULE PO SCH ×2 (10:38→18:07)
[2016-10-27] MEDS: ATORVASTATIN CALCIUM 40 MG TABLET PO SCH (10:38)
[2016-10-27] MEDS: TIOTROPIUM BROMIDE DPI 5 CAP/KIT (18 MCG/CAP) IH SCH (17:57)
[2016-10-27] MEDS: LATANOPROST 0.005% OPH SOLN 2.5 ML OP SCH (21:39)
[2016-10-27] MEDS: MORPHINE SULFATE 10 MG/ML INJ IV PRN (22:43)
[2016-10-28 05:31] LABS: HEMATOCRIT 24.5 % (36.0-47.0); HGB HCT DIFFERENCE -0.5; MEAN CORPUSCULAR HEMOGLOBIN 31.9 pg (27.0-33.4); MEAN CORPUSCULAR HGB CONC 32.6 g/dL (32.0-36.0); MEAN CORPUSCULAR VOLUME 98 fl (80-97); RED CELL DISTRIBUTION WIDTH 15.2 % (11.5-14.0); WHITE BLOOD COUNT 9.9 10^3/uL (4.0-10.5)
[2016-10-28 05:54] LABS: ANION GAP 7 (5-19); BLOOD UREA NITROGEN 15 mg/dL (7-20); CALCIUM 7.6 mg/dL (8.4-10.2); CARBON DIOXIDE 29 mmol/L (22-30); CHLORIDE 97 mmol/L (98-107); CREATININE RESULT 0.49 mg/dL (0.52-1.25); GLUCOSE 109 mg/dL (75-110); POTASSIUM 4.8 mmol/L (3.6-5.0); SODIUM 132.7 mmol/L (137-145)
--- NOTE | 2016-10-28 06:48 | PDOC PROGRESS REPORT ---
Subjective Progress Note for:: 10/28/16 Subjective:: The patient's alert and asking about Dr. Leon, glaucoma eyedrops, and artificial tears. Physical Exam Vital Signs: Temp Pulse Resp BP Pulse Ox 36.6 C 99 20 151/59 H 100 10/28/16 03:54 10/28/16 03:54 10/28/16 03:54 10/28/16 03:54 10/28/16 03:54 Intake & Output 10/26/16 10/27/16 10/28/16 06:59 06:59 06:59 Intake Total 4515 1362 512 Output Total 1925 900 Balance 2590 462 512 Weight 48.9 kg 48.7 kg 49.8 kg General appearance: PRESENT: mild distress Head exam: PRESENT: normocephalic Respiratory exam: PRESENT: unlabored Murmur grade: 2 Pulses: PRESENT: +1 pedal pulses bilateral Vascular exam: PRESENT: normal capillary refill Extremities exam: PRESENT: other - Distal incision seems to be weeping primarily serosanguineous fluid Neurological exam: PRESENT: alert, awake, oriented to person, oriented to place , oriented to time, oriented to situation Psychiatric exam: PRESENT: appropriate affect, normal mood. ABSENT: homicidal ideation, suicidal ideation Results Laboratory Results: 10/28/16 05:18 10/28/16 05:18 10/28/16 10/28/16 05:18 05:18 WBC 9.9 RBC 2.50 L Hgb 8.0 L Hct 24.5 L MCV 98 H MCH 31.9 MCHC 32.6 RDW 15.2 H Plt Count 188 Sodium 132.7 L Potassium 4.8 Chloride 97 L Carbon Dioxide 29 Anion Gap 7 BUN 15 Creatinine 0.49 L Est GFR ( Amer) > 60 Est GFR (Non-Af Amer) > 60 Glucose 109 Calcium 7.6 L Impressions: Chest X-Ray 10/24/16 06:06 IMPRESSION: NO ACUTE RADIOGRAPHIC FINDING IN THE CHEST. Fluoroscopy 10/25/16 00:00 IMPRESSION: Intra procedural imaging and fluoro Hip X-Ray 10/25/16 00:00 IMPRESSION: Intra procedural imaging and fluoro Assessment & Plan - Diagnosis (1) Closed displaced intertrochanteric fracture of right femur Qualifiers: Encounter type: initial encounter Qualified Code(s): S72.141A - Displaced intertrochanteric fracture of right femur, initial encounter for closed fracture Is this a current diagnosis for this admission?: YesPlan: Patient postop day 3 from open reduction internal fixation of a right proximal femur fracture. Physical therapy has been fairly limited. Wounds with serosanguineous drainage reflecting the large amount of trauma and postoperative hematoma. (2) Acute blood loss as cause of postoperative anemia Is this a current diagnosis for this admission?: YesPlan: Hematocrit has decreased to 24.5% - Time Time Spent with patient: 15-24 minutes Anticipated discharge: SNF Within: within 72 hours
[2016-10-28] MEDS ORDERED: NORMAL SALINE 250 ML IV PRN (07:03)
--- NOTE | 2016-10-28 07:03 | PDOC PROGRESS REPORT ---
Subjective Progress Note for:: 10/28/16 Subjective:: eyes dry. Wants artificial tears Physical Exam Vital Signs: Temp Pulse Resp BP Pulse Ox 97.9 F 99 20 151/59 H 100 10/28/16 03:54 10/28/16 03:54 10/28/16 03:54 10/28/16 03:54 10/28/16 03:54 Intake & Output 10/26/16 10/27/16 10/28/16 07:59 07:59 07:59 Intake Total 4515 1362 512 Output Total 1925 900 Balance 2590 462 512 Weight 107 lb 12.897 oz 107 lb 5.842 oz 109 lb 12.643 oz General appearance: PRESENT: no acute distress Eye exam: ABSENT: conjunctival injection Neck exam: ABSENT: tenderness Respiratory exam: PRESENT: clear to auscultation home Cardiovascular exam: PRESENT: systolic murmur. ABSENT: diastolic murmur, irregular rhythm Murmur grade: 3 GI/Abdominal exam: ABSENT: mass, organolmegaly, tenderness Extremities exam: ABSENT: pedal edema Results Laboratory Results: 10/28/16 05:18 10/28/16 05:18 10/28/16 10/28/16 05:18 05:18 WBC 9.9 RBC 2.50 L Hgb 8.0 L Hct 24.5 L MCV 98 H MCH 31.9 MCHC 32.6 RDW 15.2 H Plt Count 188 Sodium 132.7 L Potassium 4.8 Chloride 97 L Carbon Dioxide 29 Anion Gap 7 BUN 15 Creatinine 0.49 L Est GFR ( Amer) > 60 Est GFR (Non-Af Amer) > 60 Glucose 109 Calcium 7.6 L Impressions: Chest X-Ray 10/24/16 06:06 IMPRESSION: NO ACUTE RADIOGRAPHIC FINDING IN THE CHEST. Fluoroscopy 10/25/16 00:00 IMPRESSION: Intra procedural imaging and fluoro Hip X-Ray 10/25/16 00:00 IMPRESSION: Intra procedural imaging and fluoro Assessment & Plan - Diagnosis (1) Closed displaced intertrochanteric fracture of right femur Qualifiers: Encounter type: initial encounter Qualified Code(s): S72.141A - Displaced intertrochanteric fracture of right femur, initial encounter for closed fracture Is this a current diagnosis for this admission?: YesPlan: hct24. 2u prbc (2) Dyspnea Qualifiers: Dyspnea type: shortness of breath Qualified Code(s): R06.02 - Shortness of breath Is this a current diagnosis for this admission?: Yes
[2016-10-28] MEDS: MORPHINE SULFATE 10 MG/ML INJ IV PRN ×3 (08:16→16:26)
[2016-10-28] MEDS: FAMOTIDINE INJ/PF 20 MG/2 ML SDV IV SCH ×2 (09:49→22:12)
[2016-10-28] MEDS: LUBIPROSTONE 24 MCG CAPSULE PO SCH ×2 (09:49→17:30)
[2016-10-28] MEDS: ATORVASTATIN CALCIUM 40 MG TABLET PO SCH (09:49)
[2016-10-28] MEDS: BUDESONIDE/FORMOTEROL 160-4.5 MCG 60 PUFF/6 GM MDI IH SCH ×2 (09:50→17:30)
[2016-10-28] MEDS: TIOTROPIUM BROMIDE DPI 5 CAP/KIT (18 MCG/CAP) IH SCH (09:50)
[2016-10-28] MEDS: POLYVINYL ALCOHOL 1.4% OPH SOLN 15 ML OU PRN (09:58)
[2016-10-28 19:55] LABS: ABSOLUTE LYMPHOCYTES (AUTO) 0.7 10^3/uL (0.5-4.7); ABSOLUTE MONOCYTES (AUTO) 1.1 10^3/uL (0.1-1.4); ABSOLUTE NEUT (AUTO) 8.6 10^3/uL (1.7-8.2); BASOPHILS % (AUTO) 0.1 % (0-2); EOSINOPHILS % (AUTO) 0.1 % (0-6); HEMATOCRIT 36.1 % (36.0-47.0); LYMPHOCYTES % (AUTO) 6.8 % (13-45); MEAN CORPUSCULAR HEMOGLOBIN 30.6 pg (27.0-33.4); MEAN CORPUSCULAR HGB CONC 32.4 g/dL (32.0-36.0); MEAN CORPUSCULAR VOLUME 95 fl (80-97); MONOCYTES % (AUTO) 10.2 % (3-13); RED BLOOD COUNT 3.82 10^6/uL (3.72-5.28); RED CELL DISTRIBUTION WIDTH 16.9 % (11.5-14.0); SEGMENTED NEUTROPHILS % (AUTO) 82.8 % (42-78); WHITE BLOOD COUNT 10.4 10^3/uL (4.0-10.5)
[2016-10-28 19:56] LABS: HEMOGLOBIN 11.7 g/dL (12.0-15.5)
[2016-10-28] MEDS: OXYCODONE HCL IR 5 MG TABLET PO PRN (19:59)
[2016-10-28] MEDS: LATANOPROST 0.005% OPH SOLN 2.5 ML OP SCH (22:12)
[2016-10-29] MEDS: MORPHINE SULFATE 10 MG/ML INJ IV PRN ×3 (02:56→22:34)
[2016-10-29] MEDS: OXYCODONE HCL IR 5 MG TABLET PO PRN ×3 (06:25→18:56)
--- NOTE | 2016-10-29 06:47 | PDOC PROGRESS REPORT ---
Subjective Progress Note for:: 10/29/16 Subjective:: I feel terrible Physical Exam Vital Signs: Temp Pulse Resp BP Pulse Ox 36.3 C 102 H 18 127/59 H 100 10/29/16 03:50 10/29/16 03:50 10/29/16 03:50 10/29/16 03:50 10/29/16 03:50 Intake & Output 10/27/16 10/28/16 10/29/16 06:59 06:59 06:59 Intake Total 1362 1112 1339 Output Total 900 Balance 462 1112 1339 Weight 48.7 kg 49.8 kg 49.8 kg General appearance: PRESENT: mild distress Head exam: PRESENT: normocephalic Eye exam: PRESENT: EOMI Respiratory exam: PRESENT: unlabored Murmur grade: 3 Pulses: PRESENT: +1 pedal pulses bilateral Vascular exam: PRESENT: normal capillary refill GI/Abdominal exam: PRESENT: soft Extremities exam: PRESENT: other - Right lower extremity dressing is dry. Swelling in the leg is decreasing. Neurovascular examination the foot is intact. Results Laboratory Results: 10/28/16 19:20 10/28/16 05:18 10/26/16 10/28/16 08:04 19:20 WBC 10.4 RBC 3.82 Hgb 11.7 L D Hct 36.1 MCV 95 MCH 30.6 MCHC 32.4 RDW 16.9 H Plt Count 192 Seg Neutrophils % 82.8 H Lymphocytes % 6.8 L Monocytes % 10.2 Eosinophils % 0.1 Basophils % 0.1 Absolute Neutrophils 8.6 H Absolute Lymphocytes 0.7 Absolute Monocytes 1.1 Absolute Eosinophils 0.0 Absolute Basophils 0.0 Blood Type A POSITIVE Antibody Screen NEGATIVE Impressions: Chest X-Ray 10/24/16 06:06 IMPRESSION: NO ACUTE RADIOGRAPHIC FINDING IN THE CHEST. Fluoroscopy 10/25/16 00:00 IMPRESSION: Intra procedural imaging and fluoro Hip X-Ray 10/25/16 00:00 IMPRESSION: Intra procedural imaging and fluoro Status: Imported from PACS Assessment & Plan - Diagnosis (1) Closed displaced intertrochanteric fracture of right femur Qualifiers: Encounter type: initial encounter Qualified Code(s): S72.141A - Displaced intertrochanteric fracture of right femur, initial encounter for closed fracture Is this a current diagnosis for this admission?: YesPlan: 81-year-old status post open reduction internal fixation of a right proximal femur fracture. Wound appears to be healing uneventfully. Physical therapy has been limited. Plan for weightbearing as tolerated ambulation (2) Acute blood loss as cause of postoperative anemia Is this a current diagnosis for this admission?: YesPlan: Current hematocrit is 36% - Time Time Spent with patient: 15-24 minutes Anticipated discharge: SNF Within: within 48 hours
--- NOTE | 2016-10-29 08:15 | PDOC PROGRESS REPORT ---
Subjective Progress Note for:: 10/29/16 Subjective:: I feel good. No stool p admission Physical Exam Vital Signs: Temp Pulse Resp BP Pulse Ox 98.1 F 97 20 118/60 99 10/29/16 07:22 10/29/16 07:22 10/29/16 07:22 10/29/16 07:22 10/29/16 07:22 Intake & Output 10/28/16 10/29/16 10/30/16 07:59 07:59 07:59 Intake Total 1112 1339 Balance 1112 1339 Weight 109 lb 12.643 oz 109 lb 12.643 oz General appearance: PRESENT: no acute distress Respiratory exam: PRESENT: clear to auscultation home Cardiovascular exam: PRESENT: systolic murmur. ABSENT: diastolic murmur, irregular rhythm Murmur grade: 2 GI/Abdominal exam: ABSENT: mass, organolmegaly, tenderness Extremities exam: ABSENT: pedal edema Neurological exam: PRESENT: oriented to situation Results Laboratory Results: 10/28/16 19:20 10/28/16 05:18 10/26/16 10/28/16 08:04 19:20 WBC 10.4 RBC 3.82 Hgb 11.7 L D Hct 36.1 MCV 95 MCH 30.6 MCHC 32.4 RDW 16.9 H Plt Count 192 Seg Neutrophils % 82.8 H Lymphocytes % 6.8 L Monocytes % 10.2 Eosinophils % 0.1 Basophils % 0.1 Absolute Neutrophils 8.6 H Absolute Lymphocytes 0.7 Absolute Monocytes 1.1 Absolute Eosinophils 0.0 Absolute Basophils 0.0 Blood Type A POSITIVE Antibody Screen NEGATIVE Impressions: Chest X-Ray 10/24/16 06:06 IMPRESSION: NO ACUTE RADIOGRAPHIC FINDING IN THE CHEST. Fluoroscopy 10/25/16 00:00 IMPRESSION: Intra procedural imaging and fluoro Hip X-Ray 10/25/16 00:00 IMPRESSION: Intra procedural imaging and fluoro Assessment & Plan - Diagnosis (1) Closed displaced intertrochanteric fracture of right femur Qualifiers: Encounter type: initial encounter Qualified Code(s): S72.141A - Displaced intertrochanteric fracture of right femur, initial encounter for closed fracture Is this a current diagnosis for this admission?: YesPlan: took 4 steps with PT (2) Dyspnea Qualifiers: Dyspnea type: shortness of breath Qualified Code(s): R06.02 - Shortness of breath Is this a current diagnosis for this admission?: Yes (3) Constipation Qualifiers: Constipation type: drug induced constipation Qualified Code(s): K59.03 - Drug induced constipation Is this a current diagnosis for this admission?: YesPlan: enema
[2016-10-29] MEDS ORDERED: NA PHOS,M-B/NA PHOS,DI-BA (ADULT) 133 ML ENEMA PR SCH (09:00)
[2016-10-29] MEDS: POLYVINYL ALCOHOL 1.4% OPH SOLN 15 ML OU PRN (09:48)
[2016-10-29] MEDS: ATORVASTATIN CALCIUM 40 MG TABLET PO SCH (09:48)
[2016-10-29] MEDS: LUBIPROSTONE 24 MCG CAPSULE PO SCH ×2 (09:49→17:20)
[2016-10-29] MEDS: FAMOTIDINE INJ/PF 20 MG/2 ML SDV IV SCH ×2 (09:49→22:25)
[2016-10-29] MEDS: BUDESONIDE/FORMOTEROL 160-4.5 MCG 60 PUFF/6 GM MDI IH SCH ×2 (09:49→17:20)
[2016-10-29] MEDS: TIOTROPIUM BROMIDE DPI 5 CAP/KIT (18 MCG/CAP) IH SCH (09:50)
[2016-10-29] MEDS: LATANOPROST 0.005% OPH SOLN 2.5 ML OP SCH (22:25)
[2016-10-30] MEDS: OXYCODONE HCL IR 5 MG TABLET PO PRN ×3 (04:25→23:11)
--- NOTE | 2016-10-30 07:06 | PDOC PROGRESS REPORT ---
Subjective Progress Note for:: 10/30/16 Subjective:: not hungry. R hip pain Physical Exam Vital Signs: Temp Pulse Resp BP Pulse Ox 97.6 F 105 H 16 112/59 L 100 10/30/16 05:08 10/30/16 05:08 10/30/16 05:08 10/30/16 05:08 10/30/16 05:08 Intake & Output 10/28/16 10/29/16 10/30/16 07:59 07:59 07:59 Intake Total 1112 1339 372 Balance 1112 1339 372 Weight 109 lb 12.643 oz 109 lb 12.643 oz 104 lb 7.986 oz General appearance: PRESENT: mild distress Respiratory exam: PRESENT: clear to auscultation home Cardiovascular exam: PRESENT: systolic murmur. ABSENT: diastolic murmur, irregular rhythm Murmur grade: 2 GI/Abdominal exam: ABSENT: mass, organolmegaly, tenderness Extremities exam: ABSENT: pedal edema Psychiatric exam: PRESENT: appropriate affect Results Laboratory Results: 10/28/16 19:20 10/28/16 05:18 Impressions: Chest X-Ray 10/24/16 06:06 IMPRESSION: NO ACUTE RADIOGRAPHIC FINDING IN THE CHEST. Fluoroscopy 10/25/16 00:00 IMPRESSION: Intra procedural imaging and fluoro Hip X-Ray 10/25/16 00:00 IMPRESSION: Intra procedural imaging and fluoro Assessment & Plan - Diagnosis (1) Closed displaced intertrochanteric fracture of right femur Qualifiers: Encounter type: initial encounter Qualified Code(s): S72.141A - Displaced intertrochanteric fracture of right femur, initial encounter for closed fracture Is this a current diagnosis for this admission?: YesPlan: doesn't like IV morphine. DrS ordered IV acetaminophen. Start search for rehab at [facility]. FL2 signed (2) Dyspnea Qualifiers: Dyspnea type: shortness of breath Qualified Code(s): R06.02 - Shortness of breath Is this a current diagnosis for this admission?: Yes (3) Constipation Qualifiers: Constipation type: drug induced constipation Qualified Code(s): K59.03 - Drug induced constipation Is this a current diagnosis for this admission?: YesPlan: 2 stools (4) Anorexia Is this a current diagnosis for this admission?: YesPlan: marinol
[2016-10-30] MEDS: BUDESONIDE/FORMOTEROL 160-4.5 MCG 60 PUFF/6 GM MDI IH SCH ×2 (10:32→17:14)
[2016-10-30] MEDS: ACETAMINOPHEN 100 ML IV SCH ×2 (10:32→17:13)
[2016-10-30] MEDS: TIOTROPIUM BROMIDE DPI 5 CAP/KIT (18 MCG/CAP) IH SCH (10:33)
[2016-10-30] MEDS: FAMOTIDINE INJ/PF 20 MG/2 ML SDV IV SCH ×2 (10:34→22:15)
[2016-10-30] MEDS: ATORVASTATIN CALCIUM 40 MG TABLET PO SCH (10:34)
[2016-10-30] MEDS: LUBIPROSTONE 24 MCG CAPSULE PO SCH ×2 (10:34→17:13)
[2016-10-30] MEDS: DRONABINOL 2.5 MG CAPSULE PO SCH ×3 (12:17→23:12)
[2016-10-30] MEDS: LATANOPROST 0.005% OPH SOLN 2.5 ML OP SCH (22:16)
[2016-10-31] MEDS: ACETAMINOPHEN 100 ML IV SCH ×3 (01:09→17:35)
[2016-10-31] MEDS: MORPHINE SULFATE 10 MG/ML INJ IV PRN (04:37)
[2016-10-31] MEDS: OXYCODONE HCL IR 5 MG TABLET PO PRN ×2 (05:53→20:06)
[2016-10-31] MEDS: DRONABINOL 2.5 MG CAPSULE PO SCH ×3 (06:34→17:35)
--- NOTE | 2016-10-31 07:06 | PDOC DISCHARGE SUMMARY ---
General - Admit/Disc Date/PCP Admission Date/Primary Care Provider: 10/24/16 08:56 Discharge Date: 10/31/16 - Discharge Diagnosis (1) Closed displaced intertrochanteric fracture of right femur Is this a current diagnosis for this admission?: YesSummary: ORIF. Xarelto held till now for hematoma & oozing which has stopped. Had 4u prbc. Taking few steps with 2 assistants. 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 May need oxygen if sat<89 (3) Constipation Is this a current diagnosis for this admission?: YesSummary: needed fleets enema even on amitiza (4) Anorexia Is this a current diagnosis for this admission?: YesSummary: marinol helping - Additional Information Resuscitation Status: Full Code Discharge Diet: Regular Discharge Activity: Activity As Tolerated, Supervised Activity Home Medications: Atorvastatin Calcium [Lipitor 40 mg Tablet] 40 mg PO DAILY 10/24/16 Budesonide/Formoterol Fumarate [Symbicort HFA 160-4.5 mcg Inhaler 6 gm] 2 puff PO BID 10/24/16 Latanoprost 1 drop OP QHS 10/24/16 Tiotropium [place] [Spiriva Handihaler 18 mcg/dose (30 Dose)] 18 mcg PO DAILY Dronabinol [Marinol 2.5 mg Capsule] 2.5 mg PO Q6 #120 capsule 10/31/16 Lubiprostone [Amitiza 24 Mcg Capsule] 24 mcg PO BID #0 capsule 10/31/16 Oxycodone HCl [Oxy-Ir 5 mg Tablet] 5 mg PO Q6HP PRN #120 tablet 10/31/16 Rivaroxaban [Xarelto 10 mg Tablet] 10 mg PO DAILY #30 tablet 10/31/16 History of Present Illness Patient complains of: R hip pain History of Present Illness: SANDIE BRYSON is a 81 year old female. 2d slipped in bathroom onto R hip. [employer] x[employer] intertrochanteric fracture. Dr Kirkland agreed to fix. Hospital Course Hospital Course: see above Physical Exam Vital Signs: Temp Pulse Resp BP Pulse Ox 97.6 F 105 H 16 140/70 H 94 10/31/16 03:59 10/31/16 03:59 10/31/16 03:59 10/31/16 03:59 10/31/16 03:59 Intake & Output 10/29/16 10/30/16 10/31/16 07:59 07:59 07:59 Intake Total 8892 853 0907 Balance 8854 288 5507 Weight 109 lb 12.643 oz 104 lb 7.986 oz 104 lb 7.986 oz General appearance: PRESENT: no acute distress Respiratory exam: PRESENT: clear to auscultation home - less sound on L Cardiovascular exam: PRESENT: systolic murmur. ABSENT: diastolic murmur, irregular rhythm Murmur grade: 2 Pulses: PRESENT: +1 pedal pulses bilateral GI/Abdominal exam: ABSENT: mass, organolmegaly, tenderness Extremities exam: ABSENT: pedal edema Psychiatric exam: PRESENT: appropriate affect Skin exam: PRESENT: other - eccymoses. Bruise R hip drifting down leg Results Laboratory Results: 10/28/16 19:20 10/28/16 05:18 Labs- Last Values WBC 10.4 10^3/uL (4.0-10.5) 10/28/16 19:20 RBC 3.82 10^6/uL (3.72-5.28) 10/28/16 19:20 Hgb 11.7 g/dL (12.0-15.5) L D 10/28/16 19:20 Hct 36.1 % (36.0-47.0) 10/28/16 19:20 MCV 95 fl (80-97) 10/28/16 19:20 MCH 30.6 pg (27.0-33.4) 10/28/16 19:20 MCHC 32.4 g/dL (32.0-36.0) 10/28/16 19:20 RDW 16.9 % (11.5-14.0) H 10/28/16 19:20 Plt Count 192 10^3/uL (150-450) 10/28/16 19:20 Seg Neutrophils % 82.8 % (42-78) H 10/28/16 19:20 Lymphocytes % 6.8 % (13-45) L 10/28/16 19:20 Monocytes % 10.2 % (3-13) 10/28/16 19:20 Eosinophils % 0.1 % (0-6) 10/28/16 19:20 Basophils % 0.1 % (0-2) 10/28/16 19:20 Absolute Neutrophils 8.6 10^3/uL (1.7-8.2) H 10/28/16 19:20 Absolute Lymphocytes 0.7 10^3/uL (0.5-4.7) 10/28/16 19:20 Absolute Monocytes 1.1 10^3/uL (0.1-1.4) 10/28/16 19:20 Absolute Eosinophils 0.0 10^3/uL (0.0-0.6) 10/28/16 19:20 Absolute Basophils 0.0 10^3/uL (0.0-0.2) 10/28/16 19:20 PT 13.9 SEC (11.4-15.4) 10/24/16 06:20 INR 1.03 10/24/16 06:20 APTT 21.3 SEC (23.5-35.8) L 10/24/16 06:20 Sodium 132.7 mmol/L (137-145) L 10/28/16 05:18 Potassium 4.8 mmol/L (3.6-5.0) 10/28/16 05:18 Chloride 97 mmol/L (98-107) L 10/28/16 05:18 Carbon Dioxide 29 mmol/L (22-30) 10/28/16 05:18 Anion Gap 7 (5-19) 10/28/16 05:18 BUN 15 mg/dL (7-20) 10/28/16 05:18 Creatinine 0.49 mg/dL (0.52-1.25) L 10/28/16 05:18 Est GFR ( Amer) > 60 (>60) 10/28/16 05:18 Est GFR (Non-Af Amer) > 60 (>60) 10/28/16 05:18 Glucose 109 mg/dL (75-110) 10/28/16 05:18 Calcium 7.6 mg/dL (8.4-10.2) L 10/28/16 05:18 Total Bilirubin 0.7 mg/dL (0.2-1.3) 10/24/16 06:20 Direct Bilirubin 0.0 mg/dL (0.0-0.3) 10/24/16 06:20 AST 51 U/L (14-36) H 10/24/16 06:20 ALT 45 U/L (9-52) 10/24/16 06:20 Alkaline Phosphatase 144 U/L (38-126) H 10/24/16 06:20 Total Protein 5.6 g/dL (6.3-8.2) L 10/24/16 06:20 Albumin 3.1 g/dL (3.5-5.0) L 10/24/16 06:20 Blood Type A POSITIVE 10/26/16 08:04 Blood Type Confirm A POSITIVE 10/26/16 08:04 Antibody Screen NEGATIVE 10/26/16 08:04 Crossmatch See Detail 10/26/16 08:04 Impressions: Chest X-Ray 10/24/16 06:06 IMPRESSION: NO ACUTE RADIOGRAPHIC FINDING IN THE CHEST. Fluoroscopy 10/25/16 00:00 IMPRESSION: Intra procedural imaging and fluoro Hip X-Ray 10/25/16 00:00 IMPRESSION: Intra procedural imaging and fluoro Qualifiers PATEINT BEING DISCHARGED WITH ANY OF THE FOLLOWING DIAGNOSIS?: No Plan Discharge Plan: [facility] with daily PT Time Spent: Less than 30 Minutes
--- NOTE | 2016-10-31 07:32 | PDOC PROGRESS REPORT ---
Subjective Progress Note for:: 10/31/16 Subjective:: Patient complaining of pain Physical Exam Vital Signs: Temp Pulse Resp BP Pulse Ox 36.4 C 105 H 16 140/70 H 94 10/31/16 03:59 10/31/16 03:59 10/31/16 03:59 10/31/16 03:59 10/31/16 03:59 Intake & Output 10/30/16 10/31/16 11/01/16 06:59 06:59 06:59 Intake Total 372 1040 Balance 372 1040 Weight 47.4 kg 47.4 kg General appearance: PRESENT: mild distress Eye exam: PRESENT: EOMI Murmur grade: 2 Pulses: PRESENT: +1 pedal pulses bilateral Vascular exam: PRESENT: normal capillary refill GI/Abdominal exam: PRESENT: soft Rectal exam: PRESENT: deferred Extremities exam: PRESENT: other - Left hip wound is clean dry and intact. Thigh swelling decreasing. Results Laboratory Results: 10/28/16 19:20 10/28/16 05:18 Impressions: Chest X-Ray 10/24/16 06:06 IMPRESSION: NO ACUTE RADIOGRAPHIC FINDING IN THE CHEST. Fluoroscopy 10/25/16 00:00 IMPRESSION: Intra procedural imaging and fluoro Hip X-Ray 10/25/16 00:00 IMPRESSION: Intra procedural imaging and fluoro Assessment & Plan - Diagnosis (1) Closed displaced intertrochanteric fracture of right femur Qualifiers: Encounter type: initial encounter Qualified Code(s): S72.141A - Displaced intertrochanteric fracture of right femur, initial encounter for closed fracture Is this a current diagnosis for this admission?: YesPlan: Patient will continue with physical therapy for mobilization. (2) Acute blood loss as cause of postoperative anemia Is this a current diagnosis for this admission?: Yes - Time Time Spent with patient: 15-24 minutes Anticipated discharge: SNF Within: within 48 hours
[2016-10-31] MEDS: FAMOTIDINE INJ/PF 20 MG/2 ML SDV IV SCH (10:19)
[2016-10-31] MEDS: ATORVASTATIN CALCIUM 40 MG TABLET PO SCH (10:20)
[2016-10-31] MEDS: TIOTROPIUM BROMIDE DPI 5 CAP/KIT (18 MCG/CAP) IH SCH (10:21)
[2016-10-31] MEDS: BUDESONIDE/FORMOTEROL 160-4.5 MCG 60 PUFF/6 GM MDI IH SCH ×2 (10:21→17:34)
[2016-10-31] MEDS: LUBIPROSTONE 24 MCG CAPSULE PO SCH ×2 (10:22→17:35)
[2016-10-31 17:15] VITALS: BP 145/73
== END 2016-10-31 22:00 | DRG 481 ==
LOC: ER 05:52 → EH 07:32 → UNDOADMIN 07:32 → EH 08:56 → 3S 09:11 → 5 10-29 20:30
PROVIDERS: ADMIT Family Medicine; ATTEND Family Medicine
PROC: 0QS604Z Reposition Right Upper Femur with Internal Fixation Device, Open Approach (ICD-10-PCS; principal; 2016-10-25 07:30)
PROC: 30233N1 Transfusion of Nonautologous Red Blood Cells into Peripheral Vein, Percutaneous Approach (ICD-10-PCS; 2016-10-26)
DX: S72.141A Displaced intertrochanteric fracture of right femur, initial encounter for closed fracture (principal); D62 Acute posthemorrhagic anemia; E78.00 Pure hypercholesterolemia, unspecified; I10 Essential (primary) hypertension; J44.9 Chronic obstructive pulmonary disease, unspecified; R06.02 Shortness of breath; K59.03 Drug induced constipation; R63.0 Anorexia; M19.90 Unspecified osteoarthritis, unspecified site; W01.0XXA Fall on same level from slipping, tripping and stumbling without subsequent striking against object, initial encounter; Y93.9 Activity, unspecified; Y92.002 Bathroom of unspecified non-institutional (private) residence as the place of occurrence of the external cause; Z68.21 Body mass index [BMI] 21.0-21.9, adult
CPT/HCPCS: 01230; 36415; 36430; 71010; 80048; 80053; 85025; 85027; 85610; 85730; 86850; 86900; 86901; 86920; 93005; 93010; 96374; 99285; J0131; J0690; J2250; J2270; J2370; J2405; J2704; J2765; J3010; J3490; J7030; J7120; P9016; Q0167; S0028

== ENCOUNTER 2017-05-09 09:43 | Emergency (ER) | payer MEDICARE, OTHER ==
--- NOTE | 2017-05-09 09:59 | ER Document Report ---
ED Fall - General Stated Complaint: FALL,BACK PAIN Time Seen by Provider: 05/09/17 09:58 Mode of Arrival: Medic Information source: Patient, Relative - daughter in law Notes: 82-year-old female that uses a walker was sent by her [id number] by EMS to the emergency room after slipping off her mattress last night after she got undressed and falling onto her right side hip. No head injury or loss of consciousness that was reported by EMS. She has a history of chronic back pain , osteoporosis, and intertrochantur fx right hip repair. Her [id number]-jv-[id number] got her the rest of the way ready for bed and she slept last night. She started complaining of the increased pain this morning and had trouble getting out of bed. She was given a hydrocodone 5 mg at 8:45. No chest or abdomen pain. No shortness of breath. No headache. TRAVEL OUTSIDE OF THE [place] IN LAST 30 DAYS: No - Related data Allergies/Adverse Reactions: codeine [Codeine] Allergy (Verified 08/24/15 15:01) Vomiting Home Medications: Current Home Medications Albuterol Sulfate [Proair HFA] 1 puff IN DAILY PRN 05/09/17 [History] Diltiazem HCl 1 tab PO DAILY 05/09/17 [History] Hydrocodone/Acetaminophen [Tamms 5-325 mg Tablet] 1 tab PO DAILY PRN 05/09/17 [ History] Lisinopril 1 tab PO DAILY 05/09/17 [History] Tiotropium [place] [Spiriva Handihaler 5 Cap/Kit (18 Mcg/Cap)] 1 puff IN DAILY 05/09/17 [History] Past Medical History - General Information source: Patient, Relative - daughter in law Roxane Holbrook - Social History Smoking Status: Unknown if Ever Smoked Frequency of alcohol use: None Drug Abuse: None Family History: CVA, Hypertension - Past Medical History Cardiac Medical History: Reports: Hx Hypercholesterolemia, Hx Hypertension, Other - tachycardia Pulmonary Medical History: Reports: Hx COPD, Hx Pneumonia Musculoskeltal Medical History: Reports Hx Arthritis Past Surgical History: Reports: Hx Section, Hx Orthopedic Surgery - orif left femur, Other - L pneumonectomy - Immunizations Hx Diphtheria, Pertussis, Tetanus Vaccination: Yes Hx Pneumococcal Vaccination: 08/06/14 Review of Systems - Review of Systems Constitutional: No symptoms reported EENT: No symptoms reported Cardiovascular: No symptoms reported Respiratory: No symptoms reported Gastrointestinal: No symptoms reported Genitourinary: No symptoms reported Female Genitourinary: No symptoms reported Musculoskeletal: See HPI Skin: No symptoms reported Hematologic/Lymphatic: No symptoms reported Neurological/Psychological: No symptoms reported Physical Exam - Vital signs Vitals: Temp Pulse Resp BP Pulse Ox 98.2 F 110 H 25 H 124/93 H 99 05/09/17 09:45 05/09/17 09:45 05/09/17 09:45 05/09/17 09:45 05/09/17 09:45 Interpretation: Hypertensive, Tachycardic - General General appearance: Appears well, Alert - HEENT Head: Normocephalic, Atraumatic Eyes: Normal Conjunctiva: Normal Pupils: PERRL Mucous membranes: Dry Neck: Supple - non tender - Respiratory Respiratory status: No respiratory distress Chest status: Nontender Breath sounds: Normal Chest palpation: Normal - Cardiovascular Rhythm: Regular Heart sounds: Normal auscultation Murmur: No - Abdominal Inspection: Normal Distension: No distension Bowel sounds: Normal Tenderness: Nontender. No: Tender Organomegaly: No organomegaly - Back Back: Normal, Nontender, Tender - right lower back/sacrum SI joint area, non tender great trochantur, no pain with internal /external rotation of the hip - Extremities General upper extremity: Normal inspection, Nontender, Normal color, Normal ROM , Normal temperature General lower extremity: Normal inspection, Nontender, Normal color, Normal ROM , Normal temperature, Normal weight bearing. No: Arina's sign Notes: non tender pelvis, hips, and legs. - Neurological Neuro grossly intact: Yes Cognition: Normal Orientation: AAOx4 [place] Coma Scale Eye Opening: Spontaneous [place] Coma Scale Verbal: Oriented [place] Coma Scale Motor: Obeys Commands [place] Coma Scale Total: 15 Speech: Normal Motor strength normal: LUE, RUE, LLE, RLE Sensory: Normal - Psychological Associated symptoms: Normal affect, Normal mood - Skin Skin Temperature: Warm Skin Moisture: Dry Skin Color: Normal Skin irregularity: negative: Rash Course - Re-evaluation Re-evalutation: 05/09/17 10:20 Bharti Sundar lew [phone] camping at [facility] [place], daughter in law was at the house with her [phone] cell, home. Spoke with daughter in law Roxane Holbrook who states that her hand slipped off the mattress last night so she fell onto her right side, she helped her get rest of way ready for bed, and she slept all night. increased right back pain this am, vicodin 5mg given at 0845 and sent to er to be checked. She has hx tachycardia, did not take her diltiazem 120mg or her lisinopri 20mg this am 05/09/17 12:15 Marcie who recommended getting a MRI without of the sacrum since this is where she is tender. She has multiple compression fractures which are known but suggested Dr. Putnam can do a sacral plasty if she has a sacral insufficiency fracture. 05/09/17 16:03 Patient able to stand and get into the chair with assistance. She states her pain is a lot better. I will refer her to [facility] with a copy of the MR report - Vital Signs Vital signs: Temp Pulse Resp BP Pulse Ox 98.2 F 110 H 21 H 138/42 H 98 05/09/17 09:45 05/09/17 09:45 05/09/17 12:01 05/09/17 12:01 05/09/17 12:01 Discharge - Discharge Clinical Impression: L1 compression deformity, acute transverse sacral fx Condition: Good Disposition: HOME, SELF-CARE Instructions: Compression Fracture of the Spine ([facility]) Additional Instructions: sacrum fracture and lumbar 1 compression fracture found on the MR treat the pain the the hydrocodone extra support for ambulation, must use the walker to er sooner if worse Please complete the patient satisfaction survey if you get one, and return it.. If you do not receive a survey, then you can go to the [facility] website, [email or web address] and place your comments about your very good care. Thank you very much. It was a pleasure being your medical provider today. Prescriptions: Hydrocodone Bit/Acetaminophen [Hydrocodon-Acetaminophen 5-325] 1 each PO Q4HP PRN #20 tablet PRN Reason: Referrals: JEFF PUTNAM MD [ACTIVE STAFF] - Follow up in 3-5 days
[2017-05-09] MEDS ORDERED: HYDROCODONE/ACETAMINOPHEN 5-325 MG TABLET PO ONE ×2 (10:19→14:59)
[2017-05-09] MEDS ORDERED: ACETAMINOPHEN 325 MG TABLET PO ONE ×2 (10:25→10:29)
[2017-05-09] MEDS ORDERED: DILTIAZEM HCL 120 MG CAP.SR.24H PO ONE (10:34)
[2017-05-09] MEDS ORDERED: LISINOPRIL 10 MG TABLET PO ONE (10:34)
[2017-05-09] MEDS ORDERED: ONDANSETRON 4 MG TAB.RAPDIS PO ONE (10:59)
--- NOTE | 2017-05-09 11:23 | RADIOLOGY REPORT (SQ) ---
EXAM DESCRIPTION: L SPINE 2 VIEWS COMPLETED DATE/TIME: 05/09/2017 11:11 am REASON FOR STUDY: fall off bed COMPARISON: 06/05/2014 TECHNIQUE: Two views lumbar spine including cross-table lateral. LIMITATIONS: None. FINDINGS: New severe compression seen of T12. New since prior study 06/05/2014. Old partial compression noted of the remainder the vertebral bodies in the lumbar region. Stable. Moderate arthritic change. Aortic calcification without aneurysm. IMPRESSION: Severe compression T12, new from older study 2013. Old stable compression fractures of L1 through L5. TECHNICAL DOCUMENTATION: JOB ID: [id number] [employer]- All Rights Reserved
--- NOTE | 2017-05-09 11:25 | RADIOLOGY REPORT (SQ) ---
EXAM DESCRIPTION: HIP RIGHT AP/LATERAL COMPLETED DATE/TIME: 05/09/2017 11:11 am REASON FOR STUDY: fall off bed COMPARISON: 10/25/2016 NUMBER OF VIEWS: Two views. TECHNIQUE: AP pelvis and additional frog-leg view of the right hip. LIMITATIONS: None. FINDINGS: MINERALIZATION: Osteopenia. RIGHT HIP: Medullary cordelia and long cannulated screw through the femoral neck. There appears to be sli ght shortening compared to the operative images, with overlapping of the bone on AP view. An acute f racture component cannot be ruled out. LEFT HIP: Medullary cordelia with cannulated screw through the femoral neck. PUBIS AND ISCHIUM: No fracture. PELVIS: No fracture. SACRUM: No fracture or dislocation. No worrisome bone lesions. LOWER LUMBAR SPINE: No fracture or dislocation. No worrisome bone lesions. No significant disc disea se. SOFT TISSUES: No findings. OTHER: No other significant finding. IMPRESSION: Surgical changes. An acute fracture cannot be ruled out in the proximal right femur. I t is possible that the appearance represents settling as a chronic process. Correlate clinically. TECHNICAL DOCUMENTATION: JOB ID: [id number]- All Rights Reserved
--- NOTE | 2017-05-09 11:27 | RADIOLOGY REPORT (SQ) ---
EXAM DESCRIPTION: CHEST SINGLE VIEW COMPLETED DATE/TIME: 05/09/2017 11:11 am REASON FOR STUDY: FX HIP COMPARISON: None. EXAM PARAMETERS: NUMBER OF VIEWS: One view. TECHNIQUE: Single frontal radiographic view of the chest acquired. RADIATION DOSE: NA LIMITATIONS: None. FINDINGS: LUNGS AND PLEURA: Left pneumonectomy changes. No acute infiltrate is present on the right . No pleural effusion. MEDIASTINUM AND HILAR STRUCTURES: No masses. Contour normal. HEART AND VASCULAR STRUCTURES: Heart size is indeterminate. There is mild pulmonary vascular promine nce. BONES: No acute findings. HARDWARE: None in the chest. OTHER: No other significant finding. IMPRESSION: Left pneumonectomy changes with mild pulmonary vascular prominence on the right no [place] CHF. TECHNICAL DOCUMENTATION: JOB ID: [id number]
--- NOTE | 2017-05-09 14:31 | RADIOLOGY REPORT (SQ) ---
EXAM DESCRIPTION: MRI PELVIS WITHOUT COMPLETED DATE/TIME: 05/09/2017 1:45 pm REASON FOR STUDY: attn sacrum and ileum COMPARISON: Right hip intraoperative fluoroscopy 10/25/2016 Right hip plain films 05/09/2017 Lumbar spine plain films two views 05/09/2017 TECHNIQUE: Non contrasted MRI of the sacrum was performed, including large field of view coronal who le pelvis images, axial STIR images, sagittal T1 and STIR images through the sacrum. LIMITATIONS: None. FINDINGS: Patient fell and has thoracic-lumbar junction pain. On the large fwiek-ti-uqsz images, pa rticular the coronal STIR images, there is a vertebra plana deformity at T12 without marrow edema. The L1 level demonstrates a 50% compression deformity with marrow edema which is likely acute. At L3, L4, and L5, there is biconcave deformity of the vertebral bodies with about 25% loss of height . No marrow edema. Whole pelvis T1 and STIR images demonstrate metallic artifact at the bilateral hips post ORIF of inte rtrochanteric fractures. On the right side, no marrow edema is identified along the intertrochanteri c region today. The plain films today showed delayed healing of the intertrochanteric fracture as co mpared to the operative images from 10/25/2016. Fracture lines are still evident on plain films today . The left hip and left hip hardware on large khxhq-dw-cwfe imaging is unremarkable. Imaging of the sacrum demonstrates a transverse minimally angulated fracture at the level of S2-S3, w ith about 90 of angulation of the sacrum at the fracture site. There is marrow edema in the S2 and S3, and a small amount of soft tissue edema in the presacral fat. These findings are best shown on s agittal STIR and sagittal T1 images 15. The right and left sacral ala are intact. Right and left SI joints are intact. Remainder of the bony 2 pelvis is intact superior There is soft tissue edema along the piriformis muscles aath-cgytxux-ughf-right. No pelvic hematoma is identified. Remainder of the study demonstrates multiple bilateral renal cortical cysts. No free pelvic fluid. Tiny postmenopausal female pelvic organs. Bladder unremarkable. IMPRESSION: Acute L1 50% compression deformity with marrow edema Acute transverse fracture of the sacrum with mild ventral angulation of the distal sacral and coccyge al segments. Fracture line is transverse at the level of S2-S3. This was not apparent on plain film s due to osteoporosis. Findings discussed with Alvina Fournier in the emergency room. TECHNICAL DOCUMENTATION: JOB ID: [id number] [employer]- All Rights Reserved
[2017-05-09 16:20] VITALS: BP 138/42
== END 2017-05-09 16:30 | disposition home or self-care (01) ==
LOC: ER 09:43
DX: S32.10XA Unspecified fracture of sacrum, initial encounter for closed fracture (principal); W06.XXXA Fall from bed, initial encounter; Y92.003 Bedroom of unspecified non-institutional (private) residence as the place of occurrence of the external cause; Z98.890 Other specified postprocedural states; I10 Essential (primary) hypertension; R00.0 Tachycardia, unspecified; M81.0 Age-related osteoporosis without current pathological fracture; Z88.5 Allergy status to narcotic agent; Z79.899 Other long term (current) drug therapy
CPT/HCPCS: 99284; 72195; 71010; 73502; 72100; A9270 ×5; S0119

== ENCOUNTER 2017-07-30 09:02 | Emergency (ER) | payer MEDICARE, OTHER ==
[2017-07-30] MEDS ORDERED: HYDROCODONE/ACETAMINOPHEN 5-325 MG TABLET PO ONE (09:43)
[2017-07-30] MEDS ORDERED: LIDOCAINE 5% (700 MG) TRANSDERMAL ADH..PATCH TP ONE (09:43)
--- NOTE | 2017-07-30 11:59 | RADIOLOGY REPORT (SQ) ---
EXAM DESCRIPTION: L SPINE WHOLE COMPLETED DATE/TIME: 07/30/2017 11:44 am REASON FOR STUDY: hx of fx COMPARISON: Lumbar spine films 05/09/2017 NUMBER OF VIEWS: Five views including obliques. TECHNIQUE: AP, lateral, oblique, and sacral radiographic images acquired of the lumbar spine. LIMITATIONS: None. FINDINGS: MINERALIZATION: Osteoporotic SEGMENTATION: Normal. No transitional anatomy. ALIGNMENT: Normal. VERTEBRAE: Since the prior plain films from 05/09/2017, patient has developed a vertebra plana deformit y at L1 is greater than 75% vertebral body loss of height. No gross retropulsion of bony fragments b y plain film. Stable vertebra plana deformity at T12. Stable biconcave wedge compression deformities with about 25 to 50% loss of height at L2, 3, 4, and 5 . DISCS: Preserved height. No significant osteophytes or end plate irregularity. POSTERIOR ELEMENTS: Pedicles and facets are intact. No pars defect or posterior arch defects. HARDWARE: None in the spine. PARASPINAL SOFT TISSUES: Normal. PELVIS: Not well seen OTHER: No other significant finding. IMPRESSION: Since the prior plain films from 05/09/2017, patient has developed a vertebra plana deform ity at L1 TECHNICAL DOCUMENTATION: JOB ID: [id number] [employer]- All Rights Reserved
--- NOTE | 2017-07-30 12:56 | ER Document Report ---
ED General - General Chief Complaint: Back Pain Stated Complaint: WEAKNESS Time Seen by Provider: 07/30/17 09:31 TRAVEL OUTSIDE OF THE [place] IN LAST 30 DAYS: No - HPI Patient complains to provider of: Back pain Notes: Patient coming in for evaluation of back pain. Patient has a history of chronic back pain. Patient states took tramadol last night and tramadol this morning states when resting no back pain however when patient tries to ambulate has diffuse back pain. Patient with recent visit after a fall with multiple fractures and compression abnormality seen of the lower lumbar spine. Patient denies any recent falls denies any recent trauma. Upon my evaluation patient is resting currently. Patient is on nasal cannula patient is on chronic home O2 at home. - Related Data Allergies/Adverse Reactions: codeine [Codeine] Allergy (Verified 08/24/15 15:01) Vomiting Home Medications: Current Home Medications Diltiazem HCl 120 mg PO DAILY 07/30/17 [History] Lisinopril 20 mg PO DAILY 07/30/17 [History] Past Medical History - Social History Smoking Status: Never Smoker Chew tobacco use (# tins/day): No Frequency of alcohol use: Rare Drug Abuse: None Family History: CVA, Hypertension Patient has suicidal ideation: No Patient has homicidal ideation: No - Past Medical History Cardiac Medical History: Reports: Hx Hypercholesterolemia, Hx Hypertension Denies: Hx Coronary Artery Disease, Hx Heart Attack Pulmonary Medical History: Reports: Hx COPD, Hx Pneumonia Denies: Hx Asthma, Hx Bronchitis, Hx Tuberculosis Neurological Medical History: Denies: Hx Cerebrovascular Accident, Hx Seizures Renal/ Medical History: Denies: Hx Peritoneal Dialysis GI Medical History: Denies: Hx Hepatitis, Hx Hiatal Hernia, Hx Ulcer Musculoskeltal Medical History: Reports Hx Arthritis Infectious Medical History: Denies: Hx Hepatitis Past Surgical History: Reports: Hx Section, Hx Orthopedic Surgery - orif left femur, Other - L pneumonectomy. Denies: Hx Mastectomy, Hx Open Heart Surgery, Hx Pacemaker - Immunizations Hx Diphtheria, Pertussis, Tetanus Vaccination: Yes Hx Pneumococcal Vaccination: 08/06/14 Review of Systems - Review of Systems Constitutional: No symptoms reported EENT: No symptoms reported Cardiovascular: No symptoms reported Respiratory: No symptoms reported Gastrointestinal: No symptoms reported Genitourinary: No symptoms reported Female Genitourinary: No symptoms reported Musculoskeletal: Back pain Skin: No symptoms reported Hematologic/Lymphatic: No symptoms reported Neurological/Psychological: No symptoms reported -: Yes All other systems reviewed and negative Physical Exam - Vital signs Vitals: Temp Pulse Resp BP Pulse Ox 98.2 F 99 18 130/84 H 97 07/30/17 09:12 07/30/17 09:12 07/30/17 09:12 07/30/17 09:12 07/30/17 09:12 Interpretation: Normal - General General appearance: Appears well, Alert - HEENT Head: Normocephalic, Atraumatic Eyes: Normal Pupils: PERRL - Respiratory Respiratory status: No respiratory distress Chest status: Nontender Breath sounds: Normal Chest palpation: Normal - Cardiovascular Rhythm: Regular Heart sounds: Normal auscultation Murmur: No - Abdominal Inspection: Normal Distension: No distension Bowel sounds: Normal Tenderness: Nontender Organomegaly: No organomegaly - Back Back: Normal, Tender - Tenderness midline approximately L1-L2 - Extremities General upper extremity: Normal inspection, Nontender, Normal color, Normal ROM , Normal temperature General lower extremity: Normal inspection, Nontender, Normal color, Normal ROM , Normal temperature, Normal weight bearing. No: Arina's sign - Neurological Neuro grossly intact: Yes Cognition: Normal Orientation: AAOx4 [place] Coma Scale Eye Opening: Spontaneous [place] Coma Scale Verbal: Oriented [place] Coma Scale Motor: Obeys Commands [place] Coma Scale Total: 15 Speech: Normal Motor strength normal: LUE, RUE, LLE, RLE Sensory: Normal - Psychological Associated symptoms: Normal affect, Normal mood - Skin Skin Temperature: Warm Skin Moisture: Dry Skin Color: Normal Course - Re-evaluation Re-evalutation: 07/30/17 14:13 Patient coming in for evaluation of back pain. Upon further evaluation of the patient once family members arrived patient was out of her hydrocodone which she normally takes for pain has been taking tramadol for the last 3 days. X- ray does show the more compression acute on chronic compression abnormality of the lumbar spine. Discussion with radiology team recommend follow-up with pain management for possible kyphoplasty discussed this with family agrees will discharge patient home on oxycodone at this time did give warnings to the family members as of the patient is elderly can cause constipation altered mental status. Family at bedside states an understanding patient states understanding that we will increase her pain medication due to a new fracture. I feel this is been to be a safe course is that the patient has been on chronic Vicodin for the last few months. While the patient has developed a good tolerance. Bowel prep was also given patient is to take Colace continues to be her bowels. Patient is follow-up with pain management. The patient presents with low back pain without signs of spinal cord compression, cauda equina syndrome, infection, aneurysm, or other serious etiology. The patient is neurologically intact. Given the extremely low risk of these diagnoses further testing and evaluation for these possibilities does not appear to be indicated at this time. The patient has been instructed to return if the symptoms worsen or change in any way. - Vital Signs Vital signs: Temp Pulse Resp BP Pulse Ox 98.1 F 76 18 127/61 H 99 07/30/17 13:06 07/30/17 13:06 07/30/17 13:06 07/30/17 13:06 07/30/17 13:06 Discharge - Discharge Clinical Impression: Compression fracture Condition: Good Disposition: HOME, SELF-CARE Instructions: Compression Fracture of the Spine ([facility]) Additional Instructions: Your x-ray shows slight more compression of the vertebrae L1. More likely this is the cause of your acute back pain exacerbation. Please take medications as prescribed please follow-up with your primary care physician and pain management clinic provided. Return to ER symptoms worsen. Prescriptions: Docusate Sodium [Colace] 100 mg PO DAILY #30 capsule Oxycodone HCl/Acetaminophen [Percocet 5-325 mg Tablet] 0.5 - 1 tab PO Q6 #25 tablet Referrals: JEFF PUTNAM MD [ACTIVE STAFF] - Follow up as needed
[2017-07-30 13:11] VITALS: BP 127/61
== END 2017-07-30 13:11 | disposition home or self-care (01) ==
LOC: ER 09:02
DX: M48.56XA Collapsed vertebra, not elsewhere classified, lumbar region, initial encounter for fracture (principal); G89.29 Other chronic pain; X58.XXXA Exposure to other specified factors, initial encounter; R53.1 Weakness; E78.00 Pure hypercholesterolemia, unspecified; I10 Essential (primary) hypertension; J44.9 Chronic obstructive pulmonary disease, unspecified; Z99.81 Dependence on supplemental oxygen
CPT/HCPCS: 99284; 72110; A9270

== ENCOUNTER 2017-09-10 10:16 | Emergency (ER) | payer MEDICARE, OTHER ==
[2017-09-10] MEDS ORDERED: LIDOCAINE 5% (700 MG) TRANSDERMAL ADH..PATCH TP ONE (10:31)
--- NOTE | 2017-09-10 10:38 | ER Document Report ---
HPI - HPI Notes: Patient is an 82-year-old female with a history of chronic pain who presents the ED complaining of bilateral leg/hip "soreness" x >1 year. Patient states that she has not had any acute injury or changes in her symptoms. When asked what brought her in, she just said ongoing soreness to her legs. EMS reported that she recently had a dose increase of her Percocet to 10mg for her chronic pain. Patient states that she is ambulatory at home with the aid of a walker and does not have any difficulties in doing so. Patient states that she can move her legs without any difficulties, and just has soreness in the outsides of her legs bilaterally from her hip to her knee. Denies any headache, fever, recent falls, neck pain, URI, sore throat, chest pain, palpitations, syncope, cough, shortness of breath, wheeze, dyspnea, abdominal pain, nausea/vomiting/ diarrhea, urinary retention, dysuria, hematuria, loss of control of bowel or bladder, numbness/tingling, saddle anesthesia, muscle paralysis/weakness, or rash. - ROS Notes: REVIEW OF SYSTEMS: CONSTITUTIONAL : Denies fever, chills, or sweats. Denies recent illness. EENT: Denies eye, ear, throat, or mouth pain or symptoms. Denies nasal or sinus congestion or discharge. Denies throat, tongue, or mouth swelling or difficulty swallowing. CARDIOVASCULAR: Denies chest pain. Denies palpitations or racing or irregular heart beat. Denies ankle edema. RESPIRATORY: Denies cough, cold, or chest congestion. Denies shortness of breath, difficulty breathing, or wheezing. GASTROINTESTINAL: Denies abdominal pain or distention. Denies nausea, vomiting , or diarrhea. Denies blood in vomitus, stools, or per rectum. Denies black, tarry stools. Denies constipation. GENITOURINARY: Denies difficulty urinating, painful urination, burning, frequency, blood in urine, or discharge. MUSCULOSKELETAL: see hpi SKIN: Denies rash, lesions or sores. NEUROLOGICAL: Denies confusion or altered mental status. Denies passing out or loss of consciousness. Denies dizziness or lightheadedness. Denies headache. Denies weakness or paralysis or loss of use of either side. Denies sensory loss, numbness, or tingling. ALL OTHER SYSTEMS REVIEWED AND NEGATIVE. Dictation was performed using [employer] voice recognition software - REPRODUCTIVE Reproductive: DENIES: : Past Medical History - Social History Smoking Status: Unknown if Ever Smoked Family History: CVA, Hypertension - Past Medical History Cardiac Medical History: Reports: Hx Hypercholesterolemia, Hx Hypertension Denies: Hx Coronary Artery Disease, Hx Heart Attack Pulmonary Medical History: Reports: Hx COPD, Hx Pneumonia Denies: Hx Asthma, Hx Bronchitis, Hx Tuberculosis Neurological Medical History: Denies: Hx Cerebrovascular Accident, Hx Seizures Renal/ Medical History: Denies: Hx Peritoneal Dialysis GI Medical History: Denies: Hx Hepatitis, Hx Hiatal Hernia, Hx Ulcer Musculoskeltal Medical History: Reports Hx Arthritis Infectious Medical History: Denies: Hx Hepatitis Past Surgical History: Reports: Hx Section, Hx Orthopedic Surgery - orif left femur, Other - L pneumonectomy. Denies: Hx Mastectomy, Hx Open Heart Surgery, Hx Pacemaker - Immunizations Hx Diphtheria, Pertussis, Tetanus Vaccination: Yes Hx Pneumococcal Vaccination: 08/06/14 Vertical Provider Document - CONSTITUTIONAL Agree With Documented VS: Yes Notes: PHYSICAL EXAMINATION: GENERAL: Well-appearing, well-nourished and in no acute distress. A&O LUNGS: Breath sounds clear to auscultation bilaterally and equal. No wheezes rales or rhonchi. HEART: Regular rate and rhythm without murmurs, rubs, gallops. ABDOMEN: Soft, nontender, nondistended abdomen. No guarding, no rebound. No masses appreciated. Normal bowel sounds present. No CVA tenderness bilaterally. No pulsatile mass. Musculoskeletal: LE's b/l: FROM to passive/active. Strength 5+/5. + mild to no tenderness to palp of the lateral soft tissue of legs b/l. no bony tenderness elicited. I am able to move the hip through ROM w/o any difficulties. I am able to compress the pelvis w/o any tenderness. There is no erythema, warmth, swelling, ecchymosis, or deformity noted. Back: FROM. Strength 5+/5. SLR negative. No SI jt tenderness. SHUKRI neg. SLR neg. Extremities: No cyanosis, clubbing, or edema b/l. Peripheral pulses 2+ to the femorals distally. Capillary refill less than 3 seconds. NEUROLOGICAL: Normal speech. Normal sensory, motor exams PSYCH: Normal mood, normal affect. SKIN: Warm, Dry, normal turgor, no rashes or lesions noted. - INFECTION CONTROL TRAVEL OUTSIDE OF THE [place] IN LAST 30 DAYS: No Course - Re-evaluation Re-evalutation: 09/10/17 10:38 Patient is an afebrile, well-hydrated, 82-year-old female who presents the ED with leg pain bilaterally, suspect benign inflammatory at this time. Vitals are stable. Patient able to ambulate greater than 4 steps while in the ED assisted. PE is otherwise unremarkable for any neurovascular compromise, obvious tendon/ligament rupture, obvious fracture or dislocation. Low suspicion for any other septic joint. No bony tenderness elicited. Low suspicion for any meningitis, fracture, expanding/ruptured AAA, cauda equina syndrome, epidural mass lesion/abscess, herniated disc causing severe spinal stenosis, or other systemic infection at this time. Patient is aware that her condition can change from initial presentation and that she needs monitor symptoms closely for any acute changes. Patient has had this pain chronically without any acute changes. Lidoderm patch applied today. Pt is already on percocet for pain. I will send her home with a Rx for lidoderm patches and voltaren gel. Recommend conservative measures for symptoms. Recheck with your PCM in 3-5 days. Consider consult orthopedics and physical therapy. Return to the ED with any worsening/concerning symptoms otherwise as reviewed in discharge. Patient is in agreement. Discharge - Discharge Clinical Impression: Chronic leg pain Qualifiers: Laterality: bilateral Qualified Code(s): M79.604 - Pain in right leg; M79.605 - Pain in left leg; M79.605 - Pain in left leg; G89.29 - Other chronic pain; G89.29 - Other chronic pain Condition: Stable Disposition: HOME, SELF-CARE Instructions: Ice Packs ([facility]), Warm Packs ([facility]) Additional Instructions: Rest, Ice, Compression, Elevation Tylenol/ibuprofen as needed Light stretches daily Strength exercises as able Moist heat and massage may help F/u with your PCP in 3-5 days for a recheck Consider consult(s) with Orthopedics/physical therapy for ongoing/worsening symptoms Return to the ED with any worsening symptoms and/or development of fever, headache, chest pain, palpitations, syncope, shortness of breath, trouble breathing, abdominal pain, n/v/d, muscle weakness/paralysis, numbness/tingling, swelling, redness, or other worsening symptoms that are concerning to you. Prescriptions: Diclofenac Sodium [Voltaren] 4 gm TP QID PRN #100 gel..gm. PRN Reason: Lidocaine [Lidoderm] 1 each TP DAILY #30 adh..patch Forms: Elevated Blood Pressure Referrals: [facility] ([facility]) [Provider Group] - Follow up as needed
[2017-09-10 11:24] VITALS: BP 138/68
== END 2017-09-10 11:22 | disposition home or self-care (01) ==
LOC: ER 10:16
DX: M79.604 Pain in right leg (principal); M79.605 Pain in left leg; G89.29 Other chronic pain; M25.551 Pain in right hip; M25.552 Pain in left hip
CPT/HCPCS: 99283

== ENCOUNTER 2017-10-18 08:58 | Emergency (ER) | payer MEDICARE, OTHER ==
--- NOTE | 2017-10-18 09:48 | ER Document Report ---
ED General Pain - General Chief Complaint: Pain All Over Stated Complaint: BODY PAIN Time Seen by Provider: 10/18/17 09:29 Information source: Patient Notes: Patient is a 82-year-old female with a long past history of osteoporosis with pain management medications. Patient supposedly was taking 90 mg of morphine a day and 4 days ago switched to 25 mg fentanyl patch and a new pain clinic secondary to a move in location. Patient states for the last 3 days she has had "pain everywhere". She specifically states it is most prominent in the right lateral hip. She denies any recent falls. She denies any headache, chest pain, nausea, vomiting, fevers, leg swelling, or diarrhea. TRAVEL OUTSIDE OF THE [place] IN LAST 30 DAYS: No - HPI Onset: Other - See above Onset/Duration: Gradual Quality of pain: Achy Severity: Moderate Pain Level: 3 Context: Chronic problem Typical of prior episodes of painful crisis: Yes Associated symptoms: Other - See above Exacerbated by: Movement Relieved by: Denies Similar symptoms previously: Yes Recently seen / treated by doctor: Yes - Related Data Allergies/Adverse Reactions: codeine [Codeine] Allergy (Verified 09/10/17 11:16) Vomiting Past Medical History - General Information source: Patient - Social History Smoking Status: Unknown if Ever Smoked Cigarette use (# per day): No Chew tobacco use (# tins/day): No Smoking Education Provided: No Frequency of alcohol use: None Drug Abuse: None Family History: CVA, Hypertension Patient has suicidal ideation: No Patient has homicidal ideation: No - Past Medical History Cardiac Medical History: Reports: Hx Hypercholesterolemia, Hx Hypertension Denies: Hx Coronary Artery Disease, Hx Heart Attack Pulmonary Medical History: Reports: Hx COPD, Hx Pneumonia Denies: Hx Asthma, Hx Bronchitis, Hx Tuberculosis Neurological Medical History: Denies: Hx Cerebrovascular Accident, Hx Seizures Renal/ Medical History: Denies: Hx Peritoneal Dialysis GI Medical History: Denies: Hx Hepatitis, Hx Hiatal Hernia, Hx Ulcer Musculoskeltal Medical History: Reports Hx Arthritis Infectious Medical History: Denies: Hx Hepatitis Past Surgical History: Reports: Hx Section, Hx Orthopedic Surgery - orif left femur, Other - L pneumonectomy. Denies: Hx Mastectomy, Hx Open Heart Surgery, Hx Pacemaker - Immunizations Hx Diphtheria, Pertussis, Tetanus Vaccination: Yes Hx Pneumococcal Vaccination: 08/06/14 Review of Systems - Review of Systems Constitutional: denies: Fever, Malaise Cardiovascular: denies: Chest pain, Palpitations Gastrointestinal: denies: Abdominal pain Genitourinary: denies: Discharge Musculoskeletal: denies: Leg swelling Neurological/Psychological: denies: Weakness, Loss of power -: Yes All other systems reviewed and negative Physical Exam - Vital signs Vitals: Temp Pulse Resp BP Pulse Ox 97.5 F 94 16 133/70 H 95 10/18/17 09:31 10/18/17 09:31 10/18/17 09:31 10/18/17 09:31 10/18/17 09:31 Notes: Reviewed vital signs and nursing note as charted by RN. CONSTITUTIONAL: Alert and oriented and responds appropriately to questions. Well -appearing; well-nourished HEAD: Normocephalic; atraumatic EYES: PERRL CARD: Regular rate and rhythm; 4 out of 6 harsh systolic murmur heard best at the left lateral sternal border RESP: Normal chest excursion without splinting or tachypnea; breath sounds clear and equal bilaterally ABD/GI: Normal bowel sounds; non-distended; soft, non-tender BACK: The back appears normal and is non-tender to palpation EXT: Normal ROM in all joints; no focal tenderness to palpation. Patient is able to fully flex at the hips. No warmth or erythema over the joints SKIN: No acute lesions noted NEURO: CN II through XII are intact; moves all extremities equally; Motor and sensory function intact PSYCH: The patient's mood and manner are appropriate. Grooming and personal hygiene are appropriate. Course - Re-evaluation Re-evalutation: 10/18/17 09:41 Given the history and physical examination we will order basic laboratory values as well as obtain an x-ray of the pelvis/hip. We will attempt to call the patient's daughter, Mrs. Roxane Holbrook [phone]. I did speak directly with the [id number] who corroborated the story. She states she was taking morphine sulfate 30 mg tablets until 4 days ago when [facility] switched her to the fentanyl patch and took off all the morphine sulfate tablets. I have paged the on-call provider for the [facility] to discuss the case. 10/18/17 10:41 I have called and spoken to Dr. Gomez at the [facility]. She states that she is happy to see the patient this afternoon if the patient was able to cross the street and go to the office. X-ray of the pelvis shows no acute change. I have called and spoken to the daughter to alert her of the decision. - Vital Signs Vital signs: Temp Pulse Resp BP Pulse Ox 97.5 F 94 16 133/70 H 95 10/18/17 09:31 10/18/17 09:31 10/18/17 09:31 10/18/17 09:31 10/18/17 09:31 - Laboratory Result Diagrams: 10/18/17 09:25 10/18/17 09:25 Laboratory results interpreted by me: 10/18/17 09:25 Seg Neutrophils % 78.3 H Lymphocytes % 11.3 L Discharge - Discharge Clinical Impression: Bone pain Condition: Good Disposition: HOME, SELF-CARE Additional Instructions: Please go directly to the [facility] office and tell them that Dr. Gomez said that you should be reevaluated. Come back immediately at anytime for any increased pain, fevers, vomiting, joint swelling, or any other acute problems. Referrals: ARIEL LARA MD [Primary Care Provider] - Follow up as needed
[2017-10-18 10:00] LABS: ABSOLUTE LYMPHOCYTES (AUTO) 1.1 10^3/uL (0.5-4.7); ABSOLUTE NEUT (AUTO) 7.6 10^3/uL (1.7-8.2); BASOPHILS % (AUTO) 0.3 % (0-2); EOSINOPHILS % (AUTO) 0.1 % (0-6); HEMATOCRIT 41.7 % (36.0-47.0); LYMPHOCYTES % (AUTO) 11.3 % (13-45); MEAN CORPUSCULAR HEMOGLOBIN 30.5 pg (27.0-33.4); MEAN CORPUSCULAR HGB CONC 33.7 g/dL (32.0-36.0); MEAN CORPUSCULAR VOLUME 91 fl (80-97); PLATELET COUNT 239 10^3/uL (150-450); RED CELL DISTRIBUTION WIDTH 13.9 % (11.5-14.0); SEGMENTED NEUTROPHILS % (AUTO) 78.3 % (42-78); TOTAL CELLS COUNTED % (AUTO) 100 %; WHITE BLOOD COUNT 9.7 10^3/uL (4.0-10.5)
--- NOTE | 2017-10-18 10:16 | RADIOLOGY REPORT (SQ) ---
EXAM DESCRIPTION: HIP RIGHT AP/LATERAL COMPLETED DATE/TIME: 10/18/2017 9:47 am REASON FOR STUDY: 14, pain COMPARISON: Intraoperative views obtained 10/25/2016. Pelvis and cross-table lateral right hip 017. NUMBER OF VIEWS: Two views. TECHNIQUE: AP pelvis and additional frog-leg view of the right hip. LIMITATIONS: None. FINDINGS: MINERALIZATION: Normal. RIGHT HIP: There is again evidence of a right femoral intertrochanteric fracture with no significant further healing at the fracture site. Distraction of the fracture fragments of the right greater tro chanter and lesser trochanter again noted. The right hip nail extends into the right femoral head tr aversing intramedullary cordelia unchanged. No hardware failure. LEFT HIP: Changes of previous internal fixation of left hip with left hip nail extending into left f emoral head traversing intramedullary cordelia. No hardware failure. PUBIS AND ISCHIUM: No fracture. PELVIS: No fracture. SACRUM: No fracture or dislocation. No worrisome bone lesions. LOWER LUMBAR SPINE: There is again evidence of compression of multiple lower dorsal vertebra consiste nt with chronic compression deformities. SOFT TISSUES: No findings. OTHER: Right lower pole renal calculus. Vascular calcification abdominal aorta and iliac vessels. IMPRESSION: No significant interval change from 10/25/2016. TECHNICAL DOCUMENTATION: JOB ID: [id number] SC-69 2010 [employer]- All Rights Reserved
[2017-10-18 11:00] LABS: ANION GAP 10 (5-19); BLOOD UREA NITROGEN 24 mg/dL (7-20); CALCIUM 10.5 mg/dL (8.4-10.2); CARBON DIOXIDE 31 mmol/L (22-30); CHLORIDE 97 mmol/L (98-107); GLUCOSE 119 mg/dL (75-110); POTASSIUM 3.9 mmol/L (3.6-5.0); SODIUM 137.7 mmol/L (137-145)
[2017-10-18 12:46] VITALS: BP 133/69
== END 2017-10-18 11:26 | disposition home or self-care (01) ==
LOC: ER 08:58
DX: M89.8X9 Other specified disorders of bone, unspecified site (principal); M79.1 Myalgia; E78.00 Pure hypercholesterolemia, unspecified; I10 Essential (primary) hypertension; J44.9 Chronic obstructive pulmonary disease, unspecified; Z88.6 Allergy status to analgesic agent
CPT/HCPCS: 36415; 80048; 85025; 99283

== ENCOUNTER 2018-03-12 10:44 | Emergency (ER) | payer MEDICARE, OTHER ==
[2018-03-12 11:34] LABS: ABSOLUTE LYMPHOCYTES (AUTO) 1.2 10^3/uL (0.5-4.7); ABSOLUTE MONOCYTES (AUTO) 0.4 10^3/uL (0.1-1.4); ABSOLUTE NEUT (AUTO) 5.3 10^3/uL (1.7-8.2); BASOPHILS % (AUTO) 0.2 % (0-2); EOSINOPHILS % (AUTO) 0.6 % (0-6); HEMATOCRIT 35.5 % (36.0-47.0); HEMOGLOBIN 11.8 g/dL (12.0-15.5); LYMPHOCYTES % (AUTO) 16.9 % (13-45); MEAN CORPUSCULAR HGB CONC 33.2 g/dL (32.0-36.0); MEAN CORPUSCULAR VOLUME 90 fl (80-97); MONOCYTES % (AUTO) 5.3 % (3-13); PLATELET COUNT 192 10^3/uL (150-450); RED BLOOD COUNT 3.93 10^6/uL (3.72-5.28); RED CELL DISTRIBUTION WIDTH 14.9 % (11.5-14.0); TOTAL CELLS COUNTED % (AUTO) 100 %; WHITE BLOOD COUNT 6.8 10^3/uL (4.0-10.5)
[2018-03-12 11:52] LABS: ALANINE AMINOTRANSFERASE 19 U/L (9-52); ALBUMIN 4.3 g/dL (3.5-5.0); ALKALINE PHOSPHATASE 50 U/L (38-126); ANION GAP 10 (5-19); ASPARTATE AMINO TRANSFERASE 28 U/L (14-36); BILIRUBIN,DIRECT 0.3 mg/dL (0.0-0.4); BILIRUBIN,TOTAL 0.5 mg/dL (0.2-1.3); BLOOD UREA NITROGEN 19 mg/dL (7-20); CALCIUM 9.9 mg/dL (8.4-10.2); CARBON DIOXIDE 31 mmol/L (22-30); CHLORIDE 100 mmol/L (98-107); CREATINE KINASE 67 U/L (30-135); GLUCOSE 115 mg/dL (75-110); POTASSIUM 4.7 mmol/L (3.6-5.0); SODIUM 141.1 mmol/L (137-145); TOTAL PROTEIN 7.1 g/dL (6.3-8.2)
--- NOTE | 2018-03-12 11:55 | RADIOLOGY REPORT (SQ) ---
EXAM DESCRIPTION: CHEST SINGLE VIEW COMPLETED DATE/TIME: 03/12/2018 11:40 am REASON FOR STUDY: bed 8 db COMPARISON: 05/09/2017. EXAM PARAMETERS: NUMBER OF VIEWS: One view. TECHNIQUE: Single frontal radiographic view of the chest acquired. RADIATION DOSE: NA LIMITATIONS: None. FINDINGS: LUNGS AND PLEURA: Stable surgical changes, left pneumonectomy with calcifications. Right lung clear. Stable calcified granulomas. MEDIASTINUM AND HILAR STRUCTURES: No masses. Contour normal. HEART AND VASCULAR STRUCTURES: Heart normal in size. Normal vasculature. BONES: No acute findings. HARDWARE: None in the chest. OTHER: No other significant finding. IMPRESSION: STABLE APPEARANCE OF THE CHEST. LEFT PNEUMONECTOMY. NO ACUTE RADIOGRAPHIC FINDING IN T HE CHEST. TECHNICAL DOCUMENTATION: JOB ID: [id number] [employer]- All Rights Reserved Reading location - IP/workstation name: [email or web address]
--- NOTE | 2018-03-12 11:55 | ER Document Report ---
ED Respiratory Problem - General Chief Complaint: Shortness Of Breath Stated Complaint: RESPITRATORY DISTRESS Time Seen by Provider: 03/12/18 11:03 Mode of Arrival: Medic Information source: Patient, Relative Notes: Patient is a very polite 83-year-old female with past medical history as recorded including a lung resection around 50 years ago secondary to tuberculosis and COPD on home baseline oxygen of 2 L. Patient was brought in by EMS after the skegtsme-is-bit called secondary to a cough for 1 week. I called and spoke directly to Roxane her [id number] who she lives with. She states the patient has had some shortness of breath with a little mild nonproductive cough without fevers or chest pain for around 1 week. Patient denies any nausea, vomiting, calf pain or leg swelling, recent trips or travel. TRAVEL OUTSIDE OF THE [place] IN LAST 30 DAYS: No - HPI Patient complains to provider of: Cough Onset: Other - See above Duration: Better Initiating Event: Other - See above Quality of pain: No pain Severity: Mild Pain Level: Denies Context: Smoker, Other - See above Short of Breath: Mild Cough: Nonproductive Sputum amount: None EMS treatments: Bronchodilators Associated symptoms: Other - See above Similar symptoms previously: Yes Recently seen / treated by doctor: Yes - Related Data Allergies/Adverse Reactions: codeine [Codeine] Allergy (Verified 09/10/17 11:16) Vomiting Past Medical History - General Information source: Patient, Relative - Social History Smoking Status: Current Every Day Smoker Cigarette use (# per day): No Chew tobacco use (# tins/day): No Smoking Education Provided: No Frequency of alcohol use: None Drug Abuse: None Family History: CVA, Hypertension Patient has suicidal ideation: No Patient has homicidal ideation: No - Past Medical History Cardiac Medical History: Reports: Hx Hypercholesterolemia, Hx Hypertension Denies: Hx Coronary Artery Disease, Hx Heart Attack Pulmonary Medical History: Reports: Hx COPD, Hx Pneumonia Denies: Hx Asthma, Hx Bronchitis, Hx Tuberculosis Neurological Medical History: Denies: Hx Cerebrovascular Accident, Hx Seizures Renal/ Medical History: Denies: Hx Peritoneal Dialysis GI Medical History: Denies: Hx Hepatitis, Hx Hiatal Hernia, Hx Ulcer Musculoskeltal Medical History: Reports Hx Arthritis Infectious Medical History: Denies: Hx Hepatitis Past Surgical History: Reports: Hx Section, Hx Orthopedic Surgery - orif left femur, Other - L pneumonectomy. Denies: Hx Mastectomy, Hx Open Heart Surgery, Hx Pacemaker - Immunizations Hx Diphtheria, Pertussis, Tetanus Vaccination: Yes Hx Pneumococcal Vaccination: 08/06/14 Review of Systems - Review of Systems Constitutional: denies: Fever EENT: denies: Eye discharge, Nose discharge Cardiovascular: denies: Chest pain Respiratory: Cough, Short of breath Gastrointestinal: denies: Vomiting Genitourinary: denies: Dysuria Musculoskeletal: denies: Leg swelling Skin: Other - no hives. denies: Rash Neurological/Psychological: Other - no slurred speech -: Yes All other systems reviewed and negative Physical Exam - Vital signs Vitals: Pulse Ox 100 03/12/18 10:51 Notes: Reviewed vital signs and nursing note as charted by RN. CONSTITUTIONAL: Alert and oriented and responds appropriately to questions. Well -appearing; well-nourished HEAD: Normocephalic; atraumatic EYES: PERRL; Conjunctivae clear, sclerae non-icteric ENT: Normal nose; no rhinorrhea; moist mucous membranes; pharynx without lesions noted NECK: Supple without meningismus; non-tender; no cervical lymphadenopathy, no masses CARD: Regular rate and rhythm; no murmurs; symmetric distal pulses RESP: Normal chest excursion without splinting or tachypnea; breath sounds clear and equal bilaterally; minimal expiratory wheezing without rhonchi or rales present ABD/GI: Normal bowel sounds; non-distended; soft, non-tender BACK: The back appears normal and is non-tender to palpation EXT: Normal ROM in all joints; non-tender to palpation, no edema SKIN: Normal color for age and race; warm; dry; no acute lesions noted NEURO: Moves all extremities equally; Motor and sensory function intact PSYCH: The patient's mood and manner are appropriate. Grooming and personal hygiene are appropriate. Course - Re-evaluation Re-evalutation: 03/12/18 11:54 Given the above history and physical examination, we will order an x-ray of the chest, basic labs, and provide a course of steroids. I do have a very low pretest probability for ACS, PE, or dissection. Patient feels much better after the breathing treatments. 03/12/18 11:55 EKG shows a heart of 96, normal sinus rhythm, right bundle branch block, no obvious ST elevation or depression 03/12/18 12:16 X-ray of the chest shows no obvious new findings or new consolidations. Patient 's wheezing is greatly improved. I provided steroids and another repeat duo nebulizer. Labs as recorded with a normal troponin. I reviewed the patient's old EKGs and I see no appreciable acute change. Patient will be discharged home with a course of steroids and instructions for her nebulizer use with follow-up with the primary care physician. - Vital Signs Vital signs: Temp Pulse Resp BP Pulse Ox 97.6 F 19 160/84 H 99 03/12/18 11:27 03/12/18 11:02 03/12/18 11:02 03/12/18 11:03 - Laboratory Result Diagrams: 03/12/18 11:16 03/12/18 11:16 Laboratory results interpreted by me: 03/12/18 03/12/18 11:16 11:16 Hgb 11.8 L Hct 35.5 L RDW 14.9 H Carbon Dioxide 31 H Glucose 115 H Discharge - Discharge Clinical Impression: Wheezing, Cough Condition: Good Disposition: HOME, SELF-CARE Additional Instructions: Come back immediately with any worsening cough, fevers, chest pain, leg swelling , or any other acute problems. Please follow-up with your primary care physician as we have discussed. Please complete the steroid packet that we have provided. Please take 2 puffs of the albuterol inhaler every 4 hours for the next 48 hours and then every 6 hours as needed after that. Prescriptions: Prednisone [Deltasone 20 mg Tablet] 3 tab PO DAILY 5 Days tablet Referrals: ARIEL LARA MD [Primary Care Provider] - Follow up as needed
[2018-03-12 12:04] LABS: CREATINE KINASE MB 2.03 ng/mL (<4.55)
[2018-03-12 12:10] LABS: TROPONIN I < 0.012 ng/mL
[2018-03-12] MEDS ORDERED: PREDNISONE 20 MG TABLET PO ONE (12:16)
[2018-03-12] MEDS ORDERED: IPRATROPIUM/ALBUTEROL 0.5-2.5 MG/3 ML AMPUL NEB SCH (12:30)
[2018-03-12 12:59] LABS: APPEARANCE,URINE CLEAR; BILIRUBIN,URINE NEGATIVE (NEGATIVE); COLOR,URINE YELLOW; GLUCOSE, URINE NEGATIVE (NEGATIVE); KETONES,URINE NEGATIVE (NEGATIVE); LEUKOCYTE ESTERASE,URINE NEGATIVE (NEGATIVE); NITRITE,URINE NEGATIVE (NEGATIVE); PROTEIN,URINE NEGATIVE (NEGATIVE); URINE SPECIFIC GRAVITY 1.014; UROBILINOGEN,URINE NEGATIVE mg/dL (<2.0)
[2018-03-12 13:39] VITALS: BP 156/83
--- NOTE | 2018-03-12 23:00 | EKG REPORT ---
SEVERITY:- ABNORMAL ECG - SINUS RHYTHM RIGHT BUNDLE BRANCH BLOCK : Confirmed by: Lalita Ruiz MD 12-Mar-2018 22:59:45
== END 2018-03-12 12:45 | disposition home or self-care (01) ==
LOC: ER 10:44
DX: R06.2 Wheezing (principal); R05 Cough; R06.02 Shortness of breath; J44.9 Chronic obstructive pulmonary disease, unspecified; F17.200 Nicotine dependence, unspecified, uncomplicated; I10 Essential (primary) hypertension
CPT/HCPCS: 93005; 94640; 99285; 36415; 82553; 82550; 85025; 80053; 81001; 84484; 71045; 93010; A9270 ×2; J7512; J7620

== ENCOUNTER 2019-02-02 13:57 | Inpatient (IN) | payer MEDICARE, OTHER ==
--- NOTE | 2019-02-02 14:23 | RADIOLOGY REPORT (SQ) ---
EXAM DESCRIPTION: CT HEAD WITHOUT COMPLETED DATE/TIME: 02/02/2019 2:11 pm REASON FOR STUDY: bed 20 stroke alert COMPARISON: None. TECHNIQUE: Axial images acquired through the brain without intravenous contrast. Images reviewed wi th bone, brain and subdural windows. Additional sagittal and coronal reconstructions were generated. Images stored on PACS. All CT scanners at this facility use dose modulation, iterative reconstruction, and/or weight based d osing when appropriate to reduce radiation dose to as low as reasonably achievable ([facility]ARA). [facility]: Dose Right [facility]: CareDose [facility]: Dose Right [facility]: Teradose 4D [facility]: I Read Books RADIATION DOSE: mGy. LIMITATIONS: None. FINDINGS: VENTRICLES: Prominent. CEREBRUM: No masses. No hemorrhage. No midline shift. Areas of low density in the white matter mos t likely due to chronic micro-vascular ischemic change. No evidence for acute infarction. CEREBELLUM: No masses. No hemorrhage. No alteration of density. No evidence for acute infarction. EXTRAAXIAL SPACES: Age-related involutional change. No fluid collections. No masses. ORBITS AND GLOBE: No intra- or extraconal masses. Normal contour of globe without masses. CALVARIUM: No fracture. PARANASAL SINUSES: No fluid or mucosal thickening. SOFT TISSUES: No mass or hematoma. OTHER: No other significant finding. IMPRESSION: CHRONIC CHANGES OF ATROPHY AND MICROVASCULAR ISCHEMIA. NO ACUTE PROCESS. EVIDENCE OF ACUTE STROKE: NO. COMMENT: Pertinent positive or negative findings of the imaging study reported as a CRITICAL EXAM irving Herrmann at14:16 on 02/02/2019. Category of Critical Exam: Stroke alert TECHNICAL DOCUMENTATION: JOB ID: [id number] Quality ID # [id number]: Final reports with documentation of one or more dose reduction techniques (e.g., Au tomated exposure control, adjustment of the mA and/or kV according to patient size, use of iterative reconstruction technique) 2010 [employer]- All Rights Reserved Reading location - IP/workstation name: [email or web address]
[2019-02-02 14:25] LABS: ABSOLUTE EOSINOPHILS # (AUTO) 0.1 10^3/uL (0.0-0.6); ABSOLUTE LYMPHOCYTES (AUTO) 1.3 10^3/uL (0.5-4.7); ABSOLUTE MONOCYTES (AUTO) 0.3 10^3/uL (0.1-1.4); BASOPHILS % (AUTO) 0.3 % (0-2); HEMATOCRIT 37.3 % (36.0-47.0); HEMOGLOBIN 12.3 g/dL (12.0-15.5); LYMPHOCYTES % (AUTO) 27.1 % (13-45); MEAN CORPUSCULAR HEMOGLOBIN 29.7 pg (27.0-33.4); MEAN CORPUSCULAR VOLUME 90 fl (80-97); MONOCYTES % (AUTO) 6.8 % (3-13); PLATELET COUNT 187 10^3/uL (150-450); RED BLOOD COUNT 4.15 10^6/uL (3.72-5.28); RED CELL DISTRIBUTION WIDTH 15.5 % (11.5-14.0); SEGMENTED NEUTROPHILS % (AUTO) 62.8 % (42-78); TOTAL CELLS COUNTED % (AUTO) 100 %; WHITE BLOOD COUNT 4.8 10^3/uL (4.0-10.5)
[2019-02-02 14:31] LABS: INTERNATIONAL RATION (INR) 0.87
[2019-02-02 14:32] LABS: PARTIAL THROMBOPLASTIN TIME 26.4 SEC (23.5-35.8)
[2019-02-02 14:36] LABS: PROTHROMBIN TIME 12.3 SEC (11.4-15.4)
[2019-02-02 14:45] LABS: ALANINE AMINOTRANSFERASE 17 U/L (9-52); ALBUMIN 3.9 g/dL (3.5-5.0); ALKALINE PHOSPHATASE 50 U/L (38-126); ANION GAP 9 (5-19); ASPARTATE AMINO TRANSFERASE 21 U/L (14-36); BILIRUBIN,DIRECT 0.2 mg/dL (0.0-0.4); BILIRUBIN,TOTAL 0.6 mg/dL (0.2-1.3); BLOOD UREA NITROGEN 45 mg/dL (7-20); CALCIUM 9.9 mg/dL (8.4-10.2); CARBON DIOXIDE 30 mmol/L (22-30); CHLORIDE 103 mmol/L (98-107); CREATINE KINASE 38 U/L (30-135); GLUCOSE 113 mg/dL (75-110); POTASSIUM 4.3 mmol/L (3.6-5.0); SODIUM 142.4 mmol/L (137-145); TOTAL PROTEIN 6.6 g/dL (6.3-8.2)
--- NOTE | 2019-02-02 14:47 | EKG REPORT ---
SEVERITY:- ABNORMAL ECG - SINUS RHYTHM RBBB AND LPFB : Confirmed by: Val Glass 02-Feb-2019 14:45:59
--- NOTE | 2019-02-02 14:51 | ER Document Report ---
ED Neuro Symptoms/Deficit - General Stated Complaint: POSSIBLE STROKE Time Seen by Provider: 02/02/19 14:44 Primary Care Provider: ARIEL LARA MD [Primary Care Provider] - Follow up as needed Notes: Patient is an 84-year-old female who was brought in by EMS for weakness of the left side and inability to stand and ambulate. Patient was last seen normal with none of these neurologic findings yesterday afternoon about 4 PM. She lives alone. Has a history of dementia. Daughter reportedly recently moved out a few weeks ago. Patient has home health that comes to check on her and they came this morning and found the patient in her current condition. Patien is awake and understands questions and attempts to answer. She denies previous stroke. She is on home O2 at 3 L. Uses a walker to get around. Limited other history. Patient has a history of a complete left pneumonectomy.. History of SVT. Only medications with the patient are Dilaudid 4 mg tablets and Cardizem tablets. TRAVEL OUTSIDE OF THE [place] IN LAST 30 DAYS: No - Related Data Allergies/Adverse Reactions: codeine [Codeine] Allergy (Verified 09/10/17 11:16) Vomiting Past Medical History - Social History Smoking Status: Unknown if Ever Smoked Family History: Reviewed & Not Pertinent, CVA, Hypertension - Past Medical History Cardiac Medical History: Reports: Hx Hypercholesterolemia, Hx Hypertension, Other - Documented history of SVT. On Cardizem. Pulmonary Medical History: Reports: Hx COPD, Hx Pneumonia, Other - History of left pneumonectomy. Neurological Medical History: Denies: Hx Cerebrovascular Accident, Hx Seizures Musculoskeletal Medical History: Reports Hx Arthritis Infectious Medical History: Denies: Hx Hepatitis Past Surgical History: Reports: Hx Section, Hx Orthopedic Surgery - orif left femur, Other - L pneumonectomy - Immunizations Hx Diphtheria, Pertussis, Tetanus Vaccination: Yes Hx Pneumococcal Vaccination: 08/06/14 Review of Systems - Review of Systems -: Yes ROS unobtainable due to patient's medical condition - Pt answers questions slowly and its difficult to understand what she says Physical Exam - Vital signs Interpretation: Normal. No: Hypoxic Notes: PHYSICAL EXAMINATION: GENERAL: Well-appearing, in no acute distress. Head turn to the right. HEAD: Atraumatic, normocephalic. No hematomas felt. EYES: Pupils equal round and reactive to light, extraocular movements intact. ENT: oropharynx clear without exudates. Mild dry mucous membranes. NECK: Normal range of motion, supple. No carotid bruits heard. LUNGS: Breath sounds clear on the right but no breath sounds on the left. HEART: Regular rate and rhythm without murmurs. ABDOMEN: Soft, nontender. No guarding or rebound. No masses. BACK: No tenderness throughout entire back. EXTREMITIES: Normal range of motion without pain. NEUROLOGICAL: Patient attempts to talk and is partially understandable. Slurred at times. Unable to stand. Cannot hold it above the bed. Awake, alert, follows commands and answers questions appropriately, although it is hard to understand what she is saying at times. PSYCH: Unable to assess. SKIN: Warm, dry, no rashes. Course - Re-evaluation Re-evalutation: 02/02/19 14:55 Patient is well beyond any window for thrombolytic medications for her stroke. She was last seen normally at 4:00 yesterday afternoon. 02/02/19 15:01 Spoke with hospitalist who will admit the patient to [facility]. - Laboratory Result Diagrams: 02/02/19 14:09 02/02/19 14:09 Laboratory results interpreted by me: 02/02/19 14:09 RDW 15.5 H Discharge - Discharge Clinical Impression: Stroke Condition: Stable Disposition: ADMITTED INPATIENT Admitting Provider: Pema (Hospitalist) Unit Admitted: [facility] Referrals: ARIEL LARA MD [Primary Care Provider] - Follow up as needed
[2019-02-02 14:57] LABS: CREATINE KINASE MB 1.76 ng/mL (<4.55)
--- NOTE | 2019-02-02 14:59 | RADIOLOGY REPORT (SQ) ---
EXAM DESCRIPTION: CHEST SINGLE VIEW COMPLETED DATE/TIME: 02/02/2019 2:34 pm REASON FOR STUDY: bed 20 stroke alert COMPARISON: 05/09/2017 EXAM PARAMETERS: NUMBER OF VIEWS: One view. TECHNIQUE: Single frontal radiographic view of the chest acquired. RADIATION DOSE: NA LIMITATIONS: None. FINDINGS: LUNGS AND PLEURA: Chronic left pneumonectomy changes. Mild chronic interstitial changes in the right lung. Prior granulomatous disease in the right lung. No pneumothorax. MEDIASTINUM AND HILAR STRUCTURES: No masses. Contour normal. HEART AND VASCULAR STRUCTURES: Heart size is indeterminate. Stable appearing vasculature in the rig ht lung. BONES: The osseous structures are stable in appearance. HARDWARE: None in the chest. OTHER: No other significant finding. IMPRESSION: 1. Stable chronic left pneumonectomy changes since the prior study dated 05/09/2017. 2. Prior granulomatous disease in the right lung. Mild chronic interstitial changes. No acute find ings. TECHNICAL DOCUMENTATION: JOB ID: [id number] [employer]- All Rights Reserved Reading location - IP/workstation name: [email or web address]
[2019-02-02 15:00] LABS: TROPONIN I < 0.012 ng/mL
--- NOTE | 2019-02-02 15:56 | PDOC H&P ---
History of Present Illness Admission Date/PCP: 02/02/19 15:24 ARIEL LARA MD History of Present Illness: SANDIE BRYSON is a 84 year old female who apparently has a history of dementia wh o had a home health nurse coming to see her today, for an at this time undetermined reason, and could not get into the house, and so EMS was called. When they got into the house the patient was found with complete left-sided flaccidity and was minimally interactive. Her vital signs were apparently normal. She was last seen normal yesterday around 4 PM. She cannot offer much other history on her own, but she does say that she last felt normal a couple of days ago. Initial head CT is negative. She failed her swallow evaluation in the emergency department. She is being admitted for further evaluation. Past Medical History Cardiac Medical History: Reports: Hyperlipidema, Hypertension, Other - Documented history of SVT. On Cardizem. Pulmonary Medical History: Reports: Chronic Obstructive Pulmonary Disease (COPD), Pneumonia, Other - History of left pneumonectomy. Neurological Medical History: Denies: Seizures GI Medical History: Denies: Hepatitis Musculoskeltal Medical History: Reports: Arthritis Hematology: Denies: Anemia, Sickle Cell Disease Past Surgical History Past Surgical History: Reports: Section, Orthopedic Surgery - orif left femur, Other - L pneumonectomy Denies: Amputation Social History Smoking Status: Unknown if Ever Smoked Frequency of Alcohol Use: Occasional Hx Recreational Drug Use: No Drugs: None Hx Prescription Drug Abuse: No Family History Family History: Reviewed & Not Pertinent, CVA, Hypertension Parental Family History Reviewed: Yes - Hypertension, CVA Children Family History Reviewed: Yes - None known Sibling(s) Family History Reviewed.: Yes - None known Medication/Allergy Allergies/Adverse Reactions: codeine [Codeine] Allergy (Verified 09/10/17 11:16) Vomiting Review of Systems ROS unobtainable: Due to mental status Physical Exam Vital Signs: Temp Pulse Resp BP Pulse Ox 97.5 F 100 22 H 130/60 H 100 02/02/19 14:23 02/02/19 15:00 02/02/19 15:17 02/02/19 15:01 02/02/19 15:01 General appearance: PRESENT: cooperative, disheveled, hard of hearing, thin Head exam: PRESENT: atraumatic, normocephalic Eye exam: PRESENT: EOMI, PERRLA. ABSENT: conjunctival injection, nystagmus, scleral icterus Ear exam: PRESENT: normal external ear exam Mouth exam: PRESENT: dry mucosa, neck supple Teeth exam: PRESENT: poor dentation Throat exam: ABSENT: post pharyngeal erythema Neck exam: PRESENT: full ROM. ABSENT: carotid bruit, JVD, lymphadenopathy, meningismus, tenderness, thyromegaly Respiratory exam: PRESENT: clear to auscultation home - Breath sounds absent on the left side, unlabored. ABSENT: accessory muscle use, crackles, prolonged expiratory phas, rhonchi, symmetrical, tachypnea, wheezes Cardiovascular exam: PRESENT: RRR - With some occasional irregular beats, +S1, +S2 Pulses: PRESENT: normal carotid pulses Vascular exam: PRESENT: normal capillary refill GI/Abdominal exam: PRESENT: normal bowel sounds, soft. ABSENT: distended, guarding, rebound, tenderness Extremities exam: ABSENT: clubbing, pedal edema Musculoskeletal exam: PRESENT: normal inspection. ABSENT: deformity Neurological exam: PRESENT: awake, oriented to person, motor sensory deficit - Left upper extremity left lower extremity with flaccid, other - Could not adequately assess cranial nerves due to patient's mental status. ABSENT: orient ed to place, oriented to time, oriented to situation Psychiatric exam: PRESENT: flat affect Skin exam: PRESENT: dry, warm Results Laboratory Results: 02/02/19 14:09 02/02/19 14:09 02/02/19 02/02/19 14:09 14:09 WBC 4.8 RBC 4.15 Hgb 12.3 Hct 37.3 MCV 90 MCH 29.7 MCHC 33.0 RDW 15.5 H Plt Count 187 Seg Neutrophils % 62.8 Lymphocytes % 27.1 Monocytes % 6.8 Eosinophils % 3.0 Basophils % 0.3 Absolute Neutrophils 3.0 Absolute Lymphocytes 1.3 Absolute Monocytes 0.3 Absolute Eosinophils 0.1 Absolute Basophils 0.0 Sodium 142.4 Potassium 4.3 Chloride 103 Carbon Dioxide 30 Anion Gap 9 BUN 45 H Creatinine 0.99 Est GFR ( Amer) > 60 Est GFR (Non-Af Amer) 53 L Glucose 113 H Calcium 9.9 Total Bilirubin 0.6 AST 21 ALT 17 Alkaline Phosphatase 50 Total Protein 6.6 Albumin 3.9 02/02/19 02/02/19 14:09 14:09 Creatine Kinase 38 CK-MB (CK-2) 1.76 Troponin I < 0.012 Impressions: Chest X-Ray 02/02/19 13:59 IMPRESSION: 1. Stable chronic left pneumonectomy changes since the prior study dated 05/09/2017. 2. Prior granulomatous disease in the right lung. Mild chronic interstitial changes. No acute findings. Head CT 02/02/19 13:59 IMPRESSION: CHRONIC CHANGES OF ATROPHY AND MICROVASCULAR ISCHEMIA. NO ACUTE PROCESS. EVIDENCE OF ACUTE STROKE: NO. Assessment and Plan - Diagnosis (1) Acute ischemic stroke Is this a current diagnosis for this admission?: Yes Plan: Based on her symptoms one would suspect a right MCA territory stroke, but her he ad CT was negative so were trying to get an MRI of the brain. I was told that the radiology department would not do an MRA, and I am not sure why, but I am going to get a carotid Doppler ultrasound. She failed her swallow evaluation so we can give her a statin yet but we will give her an aspirin suppository. Her blood pressure is in the normal range right now so PRN control is currently not an issue but we will address her blood pressure if it does become an issue. We will have her seen by speech therapy, Occupational Therapy, and physical therapy. - Time Time Spent with patient: 35 or more minutes - Inpatient Certification Medical Necessity: Need Close Monitoring Due to Risk of Patient Decompensation, Need For Continuous Telemetry Monitoring, Need for Neurological Checks
[2019-02-02] MEDS: POTASSI CL 20 MEQ/D5-1/2NS 1L 1,000 ML IV PRN (16:46)
--- NOTE | 2019-02-02 21:35 | RADIOLOGY REPORT (SQ) ---
EXAM DESCRIPTION: MRI HEAD WITHOUT COMPLETED DATE/TIME: 02/02/2019 9:19 pm REASON FOR STUDY: left sided weakness COMPARISON: None. TECHNIQUE: Multiplanar imaging includes non-contrasted T1, T2, FLAIR, and diffusion with ADC map seq uences. Images stored on PACS. LIMITATIONS: None. FINDINGS: ANATOMY: Dense right MCA on T1 series. Pituitary fossa normal. CSF SPACES: Atrophy induced prominence of ventricles and CSF spaces. CEREBRUM: High signal intensity lesions scattered throughout the white matter on FLAIR imaging with d istribution suggesting micro-vascular ischemic changes. No evidence of hemorrhage, mass, or extraaxi al fluid collection. POSTERIOR FOSSA: No signal alteration. No hemorrhage. No edema, masses or mass effect. Internal abilio tory canals, cerebello-pontine angles, mastoids normal. DIFFUSION IMAGING: Positive for acute or sub-acute infarction in the right MCA distribution involving the anterior basal ganglia and frontotemporal regions including the insular cortex. ORBITS: No masses. Globes normal. PARANASAL SINUSES: No fluid levels. Mucosa normal. OTHER: No other significant finding. IMPRESSION: Positive for acute or sub-acute infarction in the right MCA distribution involving the a nterior basal ganglia and frontotemporal regions including the insular cortex. EVIDENCE OF ACUTE STROKE: YES. RIGHT MCA. TECHNICAL DOCUMENTATION: JOB ID: [id number] [place]-72 2010 [employer]- All Rights Reserved Reading location - IP/workstation name: [email or web address]
[2019-02-02] MEDS: FAMOTIDINE INJ/PF 20 MG/2 ML SDV IV SCH (21:51)
[2019-02-02] MEDS: HEPARIN SOD (PORCINE) 5,000 UNIT/ML 1 ML SYRINGE SUBCUT SCH (21:51)
[2019-02-02] MEDS ORDERED: MORPHINE SULFATE 10 MG/ML INJ IV PRN (23:42)
[2019-02-03] MEDS: DILTIAZEM HCL INJ 25 MG/5 ML VIAL IV SCH ×4 (00:19→11:45)
[2019-02-03] MEDS: MORPHINE SULFATE 10 MG/ML INJ IV PRN ×3 (00:23→19:34)
[2019-02-03] MEDS: HEPARIN SOD (PORCINE) 5,000 UNIT/ML 1 ML SYRINGE SUBCUT SCH ×3 (06:38→21:49)
[2019-02-03 07:51] LABS: HEMATOCRIT 36.6 % (36.0-47.0); HEMOGLOBIN 12.1 g/dL (12.0-15.5); MEAN CORPUSCULAR HEMOGLOBIN 29.6 pg (27.0-33.4); MEAN CORPUSCULAR HGB CONC 33.1 g/dL (32.0-36.0); MEAN CORPUSCULAR VOLUME 90 fl (80-97); PLATELET COUNT 187 10^3/uL (150-450); RED BLOOD COUNT 4.09 10^6/uL (3.72-5.28); RED CELL DISTRIBUTION WIDTH 14.9 % (11.5-14.0); WHITE BLOOD COUNT 7.4 10^3/uL (4.0-10.5)
[2019-02-03 08:05] LABS: ANION GAP 7 (5-19); CALCIUM 9.6 mg/dL (8.4-10.2); CARBON DIOXIDE 31 mmol/L (22-30); CHLORIDE 102 mmol/L (98-107); GLUCOSE 106 mg/dL (75-110); POTASSIUM 4.6 mmol/L (3.6-5.0); SODIUM 140.3 mmol/L (137-145); TRIGLYCERIDES 169 mg/dL (<150)
[2019-02-03 08:17] LABS: DIRECT LDL 89 mg/dL (<100)
[2019-02-03 08:19] LABS: VLDL CHOLESTEROL 33.8 mg/dL (10-31)
[2019-02-03] MEDS: POTASSI CL 20 MEQ/D5-1/2NS 1L 1,000 ML IV PRN ×2 (08:32→21:47)
[2019-02-03 08:33] LABS: BLOOD UREA NITROGEN 25 mg/dL (7-20)
[2019-02-03] MEDS ORDERED: ASPIRIN 300 MG SUPP, RECTAL PR SCH (10:00)
[2019-02-03] MEDS: FAMOTIDINE INJ/PF 20 MG/2 ML SDV IV SCH ×2 (11:45→21:51)
--- NOTE | 2019-02-03 14:05 | PDOC PROGRESS REPORT ---
Subjective Progress Note for:: 02/03/19 Subjective:: No adverse events overnight. Blood pressures have been labile with some elevated pressures returning back into a normal range. She is been sleeping a lot. She did a little bit better for her swallow evaluation today but a modified barium swallow has been recommended. Still no movement of her left side. Reason For Visit: ACUTE ISCHEMIC STROKE Physical Exam Vital Signs: Temp Pulse Resp BP Pulse Ox 98.3 F 99 16 121/90 H 100 02/03/19 11:06 02/03/19 12:00 02/03/19 12:00 02/03/19 12:00 02/03/19 12:00 Intake & Output 02/02/19 02/03/19 02/04/19 06:59 06:59 06:59 Intake Total 850 121 Output Total 150 Balance 700 121 Weight 38.6 kg General appearance: PRESENT: cooperative, disheveled, hard of hearing, thin Respiratory exam: PRESENT: clear to auscultation home - Breath sounds absent on the left side, unlabored. ABSENT: accessory muscle use, crackles, prolonged expiratory phas, rhonchi, symmetrical, tachypnea, wheezes Cardiovascular exam: PRESENT: RRR - With some occasional irregular beats, +S1, +S2 Pulses: PRESENT: normal carotid pulses Vascular exam: PRESENT: normal capillary refill GI/Abdominal exam: PRESENT: normal bowel sounds, soft. ABSENT: distended, guarding, rebound, tenderness Extremities exam: ABSENT: clubbing, pedal edema Musculoskeletal exam: PRESENT: normal inspection. ABSENT: deformity Neurological exam: PRESENT: awake, oriented to person, motor sensory deficit - Left upper extremity left lower extremity with flaccid Results Laboratory Results: 02/03/19 07:02 02/03/19 07:02 02/02/19 02/02/19 02/03/19 14:09 14:09 07:02 WBC 4.8 7.4 RBC 4.15 4.09 Hgb 12.3 12.1 Hct 37.3 36.6 MCV 90 90 MCH 29.7 29.6 MCHC 33.0 33.1 RDW 15.5 H 14.9 H Plt Count 187 187 Seg Neutrophils % 62.8 Lymphocytes % 27.1 Monocytes % 6.8 Eosinophils % 3.0 Basophils % 0.3 Absolute Neutrophils 3.0 Absolute Lymphocytes 1.3 Absolute Monocytes 0.3 Absolute Eosinophils 0.1 Absolute Basophils 0.0 Sodium 142.4 Potassium 4.3 Chloride 103 Carbon Dioxide 30 Anion Gap 9 BUN 45 H Creatinine 0.99 Est GFR ( Amer) > 60 Est GFR (Non-Af Amer) 53 L Glucose 113 H Calcium 9.9 Total Bilirubin 0.6 AST 21 ALT 17 Alkaline Phosphatase 50 Total Protein 6.6 Albumin 3.9 Triglycerides Cholesterol LDL Cholesterol Direct VLDL Cholesterol HDL Cholesterol 02/03/19 07:02 WBC RBC Hgb Hct MCV MCH MCHC RDW Plt Count Seg Neutrophils % Lymphocytes % Monocytes % Eosinophils % Basophils % Absolute Neutrophils Absolute Lymphocytes Absolute Monocytes Absolute Eosinophils Absolute Basophils Sodium 140.3 Potassium 4.6 Chloride 102 Carbon Dioxide 31 H Anion Gap 7 BUN 25 H D Creatinine 0.66 Est GFR ( Amer) > 60 Est GFR (Non-Af Amer) > 60 Glucose 106 Calcium 9.6 Total Bilirubin AST ALT Alkaline Phosphatase Total Protein Albumin Triglycerides 169 H Cholesterol 175.80 LDL Cholesterol Direct 89 VLDL Cholesterol 33.8 H HDL Cholesterol 68 02/02/19 02/02/19 14:09 14:09 Creatine Kinase 38 CK-MB (CK-2) 1.76 Troponin I < 0.012 Impressions: Head MRI 02/02/19 00:00 IMPRESSION: Positive for acute or sub-acute infarction in the right MCA distribution involving the anterior basal ganglia and frontotemporal regions including the insular cortex. EVIDENCE OF ACUTE STROKE: YES. RIGHT MCA. Chest X-Ray 02/02/19 13:59 IMPRESSION: 1. Stable chronic left pneumonectomy changes since the prior study dated 05/09/2017. 2. Prior granulomatous disease in the right lung. Mild chronic interstitial changes. No acute findings. Head CT 02/02/19 13:59 IMPRESSION: CHRONIC CHANGES OF ATROPHY AND MICROVASCULAR ISCHEMIA. NO ACUTE PROCESS. EVIDENCE OF ACUTE STROKE: NO. Assessment and Plan - Diagnosis (1) Acute ischemic stroke Is this a current diagnosis for this admission?: Yes Plan: MRI showed that she did have a right MCA territory ischemic stroke. We will continue with aspirin. Modified barium swallow study is pending. Speech therapy has said that she could have nectar thick liquids and so we will try to crush up some of her medications given to her by mouth, so we will go ahead and start a statin. We are unable to obtain an MRA of the head and neck and so we will order a carotid Doppler ultrasound. We will keep an eye on her blood pressure and hopefully will settle down a little bit so that we can tell whether not she will need acute intervention. - Time Time Spent with patient: 15-24 minutes
--- NOTE | 2019-02-03 15:16 | RADIOLOGY REPORT (SQ) ---
EXAM DESCRIPTION: CAROTID DOPPLER COMPLETED DATE/TIME: 02/03/2019 2:59 pm REASON FOR STUDY: acute cva COMPARISON: None. TECHNIQUE: Grayscale ultrasound, Doppler velocity and spectra, and color Doppler images acquired of the extra-cranial carotid and vertebral arteries. Images stored on PACS. LIMITATIONS: None. FINDINGS: RIGHT CAROTID CCA Velocities: Within normal limits. ICA Velocities Peak systolic 0.47 m/s. End diastolic 0.08 m/s. Proximal ICA/CCA peak systolic ratio 0.82. Spectra normal. No significant plaque. LEFT CAROTID CCA Velocities: Within normal limits. ICA Velocities Peak systolic 0.50 m/s. End diastolic 0.09 m/s. Proximal ICA/CCA peak systolic ratio 0.79. Spectra normal. No significant plaque. VERTEBRAL ARTERIES: Antegrade flow. Normal waveforms. SUBCLAVIAN ARTERIES: No finding. OTHER: No other significant finding. IMPRESSION: NO HEMODYNAMICALLY SIGNIFICANT STENOSIS. COMMENT: Quality ID #[id number]: Velocity criteria are extrapolated from the diameter data as defined by t he Society of Radiologists in Ultrasound Consensus Conference. Radiology 2003: 229; 340-346. TECHNICAL DOCUMENTATION: JOB ID: [id number] [employer]- All Rights Reserved Reading location - IP/workstation name: [email or web address]
[2019-02-03] MEDS: DILTIAZEM HCL 120 MG CAP.SR.24H PO SCH (17:13)
[2019-02-03] MEDS: ASPIRIN 81 MG TABLET, CHEWABLE PO SCH (17:13)
[2019-02-03] MEDS: LISINOPRIL 10 MG TABLET PO SCH (17:13)
[2019-02-03] MEDS: ATORVASTATIN CALCIUM 20 MG TABLET PO SCH (21:51)
[2019-02-04 05:27] LABS: ANION GAP 7 (5-19); BLOOD UREA NITROGEN 20 mg/dL (7-20); CALCIUM 9.4 mg/dL (8.4-10.2); CARBON DIOXIDE 26 mmol/L (22-30); CHLORIDE 105 mmol/L (98-107); GLUCOSE 109 mg/dL (75-110); POTASSIUM 5.1 mmol/L (3.6-5.0); SODIUM 138.4 mmol/L (137-145)
[2019-02-04] MEDS: HEPARIN SOD (PORCINE) 5,000 UNIT/ML 1 ML SYRINGE SUBCUT SCH ×3 (05:56→22:07)
--- NOTE | 2019-02-04 10:10 | RADIOLOGY REPORT (SQ) ---
EXAM DESCRIPTION: IAN SWALLOW COMPLETED DATE/TIME: 02/04/2019 9:24 am REASON FOR STUDY: signs of aspiration after CVA COMPARISON: None. TECHNIQUE: Videofluoroscopic swallowing examination was performed in conjunction with speech patholo gy. Videofluoroscopic imaging was obtained and reviewed and these are the findings: RADIATION DOSE: 1.7 minutes of fluoroscopy was used. 2 images saved to PACS. LIMITATIONS: None FINDINGS: The patient was brought into the fluoro room and placed upright on a modified barium swall ow chair. The patient was then given multiple consistencies mixed with barium to swallow under live fluoroscopic video guidance. According to the Speech Pathologist there was trace laryngeal penetrati on without aspiration. IMPRESSION: NO ASPIRATION SEEN. PLEASE SEE SPEECH PATHOLOGIST REPORT FOR OTHER FINDINGS AND RECOMMEN DATIONS. COMMENT: Quality ID 145: Final reports for procedures using fluoroscopy that document radiation exp osure indices, or exposure time and number of fluorographic images (if radiation exposure indices are not available) TECHNICAL DOCUMENTATION: JOB ID: [id number] [employer]- All Rights Reserved Reading location - IP/workstation name: [email or web address]
[2019-02-04] MEDS: DILTIAZEM HCL 120 MG CAP.SR.24H PO SCH (11:06)
[2019-02-04] MEDS: FAMOTIDINE INJ/PF 20 MG/2 ML SDV IV SCH ×2 (11:06→22:09)
[2019-02-04] MEDS: ASPIRIN 81 MG TABLET, CHEWABLE PO SCH (11:06)
[2019-02-04] MEDS: LISINOPRIL 10 MG TABLET PO SCH (11:06)
[2019-02-04] MEDS ORDERED: ACETAMINOPHEN 325 MG TABLET PO PRN ×2 (11:26→11:27)
--- NOTE | 2019-02-04 12:02 | ST Inp Modified Barium Swallow ---
Medical Diagnosis - Medical Diagnoses Medical Diagnosis Description & ICD-10 Code(s): acute ischemic stroke ST Inpatient [facility] [place] - General Date: 02/04/19 Date of Onset: 02/02/19 - History History Obtained From: Family, Other - EMR -: Medical - Per EMR: patient admitted 02/02, was found by EMS with left side flaccidity. Prior history includes dementia. Daughter in law reports that the patient was on a regular diet prior to hospitalization, but that she always took very small bites and sips, and that she is a "picky eater". She also reports that the patient has a weak cough due to having "1 lung". Medications: Medications Reviewed Allergies: Refer to medical record - Subjective Current Nutritional Means: PO Current PO Diet: Pureed, Thickened liquids Current Symptoms: Coughing, Drooling, Spillage Pain: Patient reports, 0/5 - Objective Assessment: Upright, Left Lateral - Food Trials Food Trials Used: [place] thick liquids, Pureed The Patient: fed by ST, via spoon - Assessment Labial Function: Impaired - left side weakness Dentition: Partial Velo-Pharyngeal Function: Unremarkable Laryngeal Function: weak voicing - Pharyngeal Stage Initiation of Pharyngeal Stage: Delayed - triggered at pyriform sinus Reflex Delay Time (seconds): 6 Decreased Laryngeal Elevation: No Reduced Velo-Pharyngeal Closure: no Reduced Pressure Generation: No Reduced Tongue Base Retraction: No Pre-Swallowing Pooling in Valleculae: Significant Pre-Swallowing Pooling in Pyriforms: Significant Reduced Thyro-Hyiod Approximation: No Reduced Epiglottic Excursion: No Reduced Pharyngeal Peristalsis: No Post Swallow Residuals in Valleculae: None Post Swallow Residuals in Pyriforms: None Post Swallow Residuals: tongue-base - mild - Impression/Summary Laryngeal Penetration: Yes, Flash, during swallow Tracheal Aspiration: no Patient Presents With: Oral-Pharyngeal dysph., Mild-Moderate Risk of Aspiration: Moderate Risk of Nutritional Compromise: Moderate Risk Due To: Patient was very lethargic this day, which limited the swallow study. Patient is at risk of aspiration due to delay in swallow reflex. Did not trial thin liquids due to decreased alertness. - Recommendations Solid Diet Recommendations: Pureed Liquid Diet Recommendations: [place]-Thick Strict Aspitarion Precautions: Yes Dysphagia Therapy with LIMOUSINE RENTAL CLERK: Yes Recommended Techniques: Fully Upright During Meal, Check Mouth for Pocketing, Med Crushed in Applesauce, Small Bites and Sips Supervision: requires assistance Other Recommendations: Only feed when fully awake and alert. - Time Total Time: 20 Total Timed Minutes: 20
[2019-02-04] MEDS: POTASSI CL 20 MEQ/D5-1/2NS 1L 1,000 ML IV PRN (14:09)
--- NOTE | 2019-02-04 15:34 | PDOC PROGRESS REPORT ---
Subjective Progress Note for:: 02/04/19 Subjective:: No adverse events overnight. We started her back on her Cardizem yesterday and her blood pressures have stabilized. She had a modified barium swallow today and while they said she was okay for a pured diet with nectar thick liquids, she is still pocketing a lot of food in her mouth, probably because she does not know it is there, and she also had very delayed swallowing reflex. Reason For Visit: ACUTE ISCHEMIC STROKE Physical Exam Vital Signs: Temp Pulse Resp BP Pulse Ox 98.2 F 103 H 20 129/72 H 100 02/04/19 11:44 02/04/19 11:44 02/04/19 11:44 02/04/19 11:44 02/04/19 11:44 Intake & Output 02/03/19 02/04/19 02/05/19 06:59 06:59 06:59 Intake Total 850 1165 1000 Output Total 150 Balance 700 1165 1000 Weight 38.6 kg 41.9 kg General appearance: PRESENT: cooperative, disheveled, hard of hearing, thin Respiratory exam: PRESENT: Rhonchi on the right- Breath sounds absent on the left side, unlabored. ABSENT: accessory muscle use, crackles, prolonged expiratory phas, symmetrical, tachypnea, wheezes Cardiovascular exam: PRESENT: RRR - With some occasional irregular beats, +S1, +S2 Pulses: PRESENT: normal carotid pulses Vascular exam: PRESENT: normal capillary refill GI/Abdominal exam: PRESENT: normal bowel sounds, soft. ABSENT: distended, guarding, rebound, tenderness Extremities exam: ABSENT: clubbing, pedal edema Musculoskeletal exam: PRESENT: normal inspection. ABSENT: deformity Neurological exam: PRESENT: Drowsy but arousable, oriented to person, motor sensory deficit - Left upper extremity left lower extremity with flaccid Results Laboratory Results: 02/03/19 07:02 02/04/19 04:37 02/04/19 04:37 Sodium 138.4 Potassium 5.1 H Chloride 105 Carbon Dioxide 26 Anion Gap 7 BUN 20 Creatinine 0.72 Est GFR ( Amer) > 60 Est GFR (Non-Af Amer) > 60 Glucose 109 Calcium 9.4 02/02/19 02/02/19 14:09 14:09 Creatine Kinase 38 CK-MB (CK-2) 1.76 Troponin I < 0.012 Impressions: Head MRI 02/02/19 00:00 IMPRESSION: Positive for acute or sub-acute infarction in the right MCA distribution involving the anterior basal ganglia and frontotemporal regions including the insular cortex. EVIDENCE OF ACUTE STROKE: YES. RIGHT MCA. Chest X-Ray 02/02/19 13:59 IMPRESSION: 1. Stable chronic left pneumonectomy changes since the prior study dated 05/09/2017. 2. Prior granulomatous disease in the right lung. Mild chronic interstitial changes. No acute findings. Head CT 02/02/19 13:59 IMPRESSION: CHRONIC CHANGES OF ATROPHY AND MICROVASCULAR ISCHEMIA. NO ACUTE PROCESS. EVIDENCE OF ACUTE STROKE: NO. Carotid Doppler Study 02/03/19 00:00 IMPRESSION: NO HEMODYNAMICALLY SIGNIFICANT STENOSIS. Modified Barium Swallow 02/04/19 00:00 IMPRESSION: NO ASPIRATION SEEN. PLEASE SEE SPEECH PATHOLOGIST REPORT FOR OTHER FINDINGS AND RECOMMENDATIONS. Assessment and Plan - Diagnosis (1) Acute ischemic stroke Is this a current diagnosis for this admission?: Yes Plan: Left side is still flaccid. She is able to take her medications by mouth, continue blood pressure medication, aspirin and statin. She is on a modified diet, but she still at high risk for aspiration. We will continue with PT, OT, and speech therapy. She is going to need placement for rehab. - Time Time Spent with patient: 15-24 minutes
[2019-02-04] MEDS ORDERED: IPRATROPIUM/ALBUTEROL 0.5-2.5 MG/3 ML AMPUL NEB ONE (16:00)
[2019-02-04] MEDS: ATORVASTATIN CALCIUM 20 MG TABLET PO SCH (22:09)
[2019-02-05] MEDS: HEPARIN SOD (PORCINE) 5,000 UNIT/ML 1 ML SYRINGE SUBCUT SCH ×3 (06:15→22:55)
[2019-02-05 08:59] LABS: ANION GAP 8 (5-19); BLOOD UREA NITROGEN 14 mg/dL (7-20); CALCIUM 9.8 mg/dL (8.4-10.2); CARBON DIOXIDE 30 mmol/L (22-30); CHLORIDE 98 mmol/L (98-107); GLUCOSE 112 mg/dL (75-110); POTASSIUM 4.4 mmol/L (3.6-5.0); SODIUM 136.2 mmol/L (137-145)
[2019-02-05] MEDS: MORPHINE SULFATE 10 MG/ML INJ IV PRN ×4 (09:08→17:31)
[2019-02-05] MEDS: ASPIRIN 81 MG TABLET, CHEWABLE PO SCH (12:38)
[2019-02-05] MEDS: DILTIAZEM HCL 120 MG CAP.SR.24H PO SCH (12:38)
[2019-02-05] MEDS: LISINOPRIL 10 MG TABLET PO SCH (12:38)
[2019-02-05] MEDS: FAMOTIDINE INJ/PF 20 MG/2 ML SDV IV SCH ×2 (12:38→22:55)
--- NOTE | 2019-02-05 15:36 | PDOC PROGRESS REPORT ---
Subjective Progress Note for:: 02/05/19 Subjective:: No adverse events overnight. Complaints. Vital signs been stable. She is more interactive today than she has been previously. When I went to see her and spoke with her she seemed to be totally neglecting her left side. A large lump was also detected on her right breast. It is not known the last time she had a mammogram. Reason For Visit: ACUTE ISCHEMIC STROKE Physical Exam Vital Signs: Temp Pulse Resp BP Pulse Ox 99.3 F 114 H 18 138/72 H 99 02/05/19 11:10 02/05/19 11:10 02/05/19 11:10 02/05/19 11:10 02/05/19 11:10 Intake & Output 02/04/19 02/05/19 02/06/19 06:59 06:59 06:59 Intake Total 1165 1100 Balance 1165 1100 Weight 41.9 kg 41.4 kg General appearance: PRESENT: cooperative, disheveled, hard of hearing, thin Respiratory exam: PRESENT: Rhonchi on the right- Breath sounds absent on the left side, unlabored. ABSENT: accessory muscle use, crackles, prolonged expir atory phas, symmetrical, tachypnea, wheezes Cardiovascular exam: PRESENT: RRR - With some occasional irregular beats, +S1, +S2 Breast exam: She has a firm, irregular, freely movable nodule in the lower lateral quadrant of the right breast, with what feels like some associated axillary adenopathy, this was nontender, no breast discharge Pulses: PRESENT: normal carotid pulses Vascular exam: PRESENT: normal capillary refill GI/Abdominal exam: PRESENT: normal bowel sounds, soft. ABSENT: distended, guarding, rebound, tenderness Extremities exam: ABSENT: clubbing, pedal edema Musculoskeletal exam: PRESENT: normal inspection. ABSENT: deformity Neurological exam: PRESENT: Awake, interactive, oriented to person, motor sensory deficit - Left upper extremity left lower extremity with flaccidity, di splaying left side neglect Results Laboratory Results: 02/03/19 07:02 02/05/19 07:19 02/05/19 07:19 Sodium 136.2 L Potassium 4.4 Chloride 98 Carbon Dioxide 30 Anion Gap 8 BUN 14 Creatinine 0.63 Est GFR ( Amer) > 60 Est GFR (Non-Af Amer) > 60 Glucose 112 H Calcium 9.8 02/02/19 02/02/19 14:09 14:09 Creatine Kinase 38 CK-MB (CK-2) 1.76 Troponin I < 0.012 Impressions: Head MRI 02/02/19 00:00 IMPRESSION: Positive for acute or sub-acute infarction in the right MCA distribution involving the anterior basal ganglia and frontotemporal regions including the insular cortex. EVIDENCE OF ACUTE STROKE: YES. RIGHT MCA. Chest X-Ray 02/02/19 13:59 IMPRESSION: 1. Stable chronic left pneumonectomy changes since the prior study dated 05/09/2017. 2. Prior granulomatous disease in the right lung. Mild chronic interstitial changes. No acute findings. Head CT 02/02/19 13:59 IMPRESSION: CHRONIC CHANGES OF ATROPHY AND MICROVASCULAR ISCHEMIA. NO ACUTE PROCESS. EVIDENCE OF ACUTE STROKE: NO. Carotid Doppler Study 02/03/19 00:00 IMPRESSION: NO HEMODYNAMICALLY SIGNIFICANT STENOSIS. Modified Barium Swallow 02/04/19 00:00 IMPRESSION: NO ASPIRATION SEEN. PLEASE SEE SPEECH PATHOLOGIST REPORT FOR OTHER FINDINGS AND RECOMMENDATIONS. Assessment and Plan - Diagnosis (1) Acute ischemic stroke Is this a current diagnosis for this admission?: Yes Plan: Left side is still flaccid. She is able to take her medications by mouth, continue blood pressure medication, aspirin and statin. She is on a modified diet, but she still at high risk for aspiration. We will continue with PT, OT, and speech therapy. She is going to need placement for rehab. (2) Mass of right breast Is this a current diagnosis for this admission?: Yes Plan: She would not be able to stand for mammogram, so border ultrasound of the breast to better define the lesion. The family would like to know what it is they are dealing with, but they do not think that this patient would be able to tolerate any treatment if this was cancer, and they have also said that they do not think the patient would even want it. Apparently since the patient's about 19 years ago, the patient has been somewhat depressed and has been, and the words of the daughter and granddaughter, "ready to ." We had a discussion about the patient's CODE STATUS and they confirm that she would not want to have any chest compressions or mechanical ventilation. They have asked me to change her CODE STATUS to DNR/DNR, so I will make that change in the chart. - Time Time Spent with patient: 25-34 minutes
--- NOTE | 2019-02-05 15:37 | ADVANCED CARE ---
- Diagnosis (1) Acute ischemic stroke Diagnosis Current: Yes (2) Mass of right breast Diagnosis Current: Yes Resuscitation Status: Do Not Resuscitate Discussion: After discussion with the daughter and granddaughter, who would have to be the wants to make the patient's decisions at this point due to her mental status, they have said that they do not think the patient would want any aggressive measures at this point. They do not want chest compressions or mechanical ventilation. Time Spent: 15
[2019-02-05] MEDS ORDERED: LORAZEPAM INJ 2 MG/1 ML VIAL ONE (17:22)
[2019-02-05] MEDS: LORAZEPAM INJ 2 MG/1 ML VIAL IV PRN (18:45)
[2019-02-05] MEDS: ATORVASTATIN CALCIUM 20 MG TABLET PO SCH (22:54)
[2019-02-06] MEDS: LORAZEPAM INJ 2 MG/1 ML VIAL IV PRN ×3 (02:13→22:24)
[2019-02-06] MEDS: MORPHINE SULFATE 10 MG/ML INJ IV PRN ×4 (03:56→21:01)
[2019-02-06] MEDS: HEPARIN SOD (PORCINE) 5,000 UNIT/ML 1 ML SYRINGE SUBCUT SCH ×3 (05:05→21:47)
[2019-02-06] MEDS: ASPIRIN 81 MG TABLET, CHEWABLE PO SCH (12:25)
[2019-02-06] MEDS: DILTIAZEM HCL 120 MG CAP.SR.24H PO SCH (12:26)
[2019-02-06] MEDS: FAMOTIDINE INJ/PF 20 MG/2 ML SDV IV SCH ×2 (12:26→21:39)
[2019-02-06] MEDS: LISINOPRIL 10 MG TABLET PO SCH (12:26)
--- NOTE | 2019-02-06 16:55 | PDOC PROGRESS REPORT ---
Subjective Progress Note for:: 02/06/19 Subjective:: No adverse events overnight. She had no real change in her condition. Left side is still flaccid. She is had some gurgling breath sounds and so even though she has not coughed while she has eaten it is suspected that she has silently aspirated. Her daughter and granddaughter said today that they wanted to talk to somebody from hospice. Reason For Visit: ACUTE ISCHEMIC STROKE Physical Exam Vital Signs: Temp Pulse Resp BP Pulse Ox 97.5 F 113 H 22 H 126/56 H 97 02/06/19 11:23 02/06/19 11:23 02/06/19 11:23 02/06/19 11:23 02/06/19 14:35 Intake & Output 02/05/19 02/06/19 02/07/19 06:59 06:59 06:59 Intake Total 1100 150 Output Total 0 Balance 1100 150 Weight 41.4 kg 40.5 kg General appearance: PRESENT: cooperative, disheveled, hard of hearing, thin Respiratory exam: PRESENT: Rhonchi on the right- Breath sounds absent on the left side, unlabored. ABSENT: accessory muscle use, crackles, prolonged expiratory phas, symmetrical, tachypnea, wheezes Cardiovascular exam: PRESENT: RRR - With some occasional irregular beats, +S1, +S2 Breast exam: She has a firm, irregular, freely movable nodule in the lower lateral quadrant of the right breast, with what feels like some associated axillary adenopathy, this was nontender, no breast discharge Pulses: PRESENT: normal carotid pulses Vascular exam: PRESENT: normal capillary refill GI/Abdominal exam: PRESENT: normal bowel sounds, soft. ABSENT: distended, guarding, rebound, tenderness Extremities exam: ABSENT: clubbing, pedal edema Musculoskeletal exam: PRESENT: normal inspection. ABSENT: deformity Neurological exam: PRESENT: Awake, interactive, oriented to person, motor sensory deficit - Left upper extremity left lower extremity with flaccidity, displaying left side neglect Results Laboratory Results: 02/03/19 07:02 02/05/19 07:19 02/02/19 02/02/19 14:09 14:09 Creatine Kinase 38 CK-MB (CK-2) 1.76 Troponin I < 0.012 Impressions: Head MRI 02/02/19 00:00 IMPRESSION: Positive for acute or sub-acute infarction in the right MCA d istribution involving the anterior basal ganglia and frontotemporal regions including the insular cortex. EVIDENCE OF ACUTE STROKE: YES. RIGHT MCA. Chest X-Ray 02/02/19 13:59 IMPRESSION: 1. Stable chronic left pneumonectomy changes since the prior study dated 05/09/2017. 2. Prior granulomatous disease in the right lung. Mild chronic interstitial changes. No acute findings. Head CT 02/02/19 13:59 IMPRESSION: CHRONIC CHANGES OF ATROPHY AND MICROVASCULAR ISCHEMIA. NO ACUTE PROCESS. EVIDENCE OF ACUTE STROKE: NO. Carotid Doppler Study 02/03/19 00:00 IMPRESSION: NO HEMODYNAMICALLY SIGNIFICANT STENOSIS. Modified Barium Swallow 02/04/19 00:00 IMPRESSION: NO ASPIRATION SEEN. PLEASE SEE SPEECH PATHOLOGIST REPORT FOR OTHER FINDINGS AND RECOMMENDATIONS. Assessment and Plan - Diagnosis (1) Acute ischemic stroke Is this a current diagnosis for this admission?: Yes Plan: Left side is still flaccid. She is able to take her medications by mouth, continue blood pressure medication, aspirin and statin. She is on a modified diet, but she still at high risk for aspiration. We will continue with PT, OT, and speech therapy for now, but the family is interested in hospice, case management was consulted. (2) Mass of right breast Is this a current diagnosis for this admission?: Yes Plan: We will get ultrasound of the breast but that read is still pending. Family would like to proceed with a biopsy if it looks like a mass, just for their own knowledge. They reiterated that the patient did not want to have anything done most likely, and that they do not think that she could tolerate any treatment anyway. - Time Time Spent with patient: 15-24 minutes
[2019-02-06] MEDS: ATORVASTATIN CALCIUM 20 MG TABLET PO SCH (21:39)
[2019-02-07] MEDS: MORPHINE SULFATE 10 MG/ML INJ IV PRN ×3 (00:02→16:23)
[2019-02-07] MEDS: HEPARIN SOD (PORCINE) 5,000 UNIT/ML 1 ML SYRINGE SUBCUT SCH ×2 (05:00→14:42)
[2019-02-07] MEDS: FAMOTIDINE INJ/PF 20 MG/2 ML SDV IV SCH (09:34)
[2019-02-07] MEDS: DILTIAZEM HCL 120 MG CAP.SR.24H PO SCH (09:34)
[2019-02-07] MEDS: LISINOPRIL 10 MG TABLET PO SCH (09:34)
[2019-02-07] MEDS: ASPIRIN 81 MG TABLET, CHEWABLE PO SCH (09:34)
--- NOTE | 2019-02-07 15:34 | PDOC TRANSFER SUMMARY ---
General - Admit/Disc Date/PCP Admission Date/Primary Care Provider: 02/02/19 15:24 ARIEL LARA MD Discharge Date: 02/07/19 - Discharge Diagnosis (1) Acute ischemic stroke Is this a current diagnosis for this admission?: Yes Summary: She had a large right MCA territory infarct. She is had a lot of trouble swallowing, left side flaccidity, and complete left-sided neglect. (2) Mass of right breast Is this a current diagnosis for this admission?: Yes Summary: Her family has declined further work-up due to the patient's poor condition, the fact that the patient would not want anything done, and that even if she did, she would not be able to undergo any sort of treatment in her current condition. - Additional Information Resuscitation Status: Do Not Resuscitate Discharge Diet: As Tolerated Discharge Activity: Bedrest History of Present Illness Admission Date/PCP: 02/02/19 15:24 ARIEL LARA MD History of Present Illness: SANDIE BRYSON is a 84 year old female who apparently has a history of dementia who had a home health nurse coming to see her today, for an at this time undetermined reason, and could not get into the house, and so EMS was called. When they got into the house the patient was found with complete left-sided flaccidity and was minimally interactive. Her vital signs were apparently normal. She was last seen normal yesterday around 4 PM. She cannot offer much other history on her own, but she does say that she last felt normal a couple of days ago. Initial head CT is negative. She failed her swallow evaluation in the emergency department. She is being admitted for further evaluation. Hospital Course Hospital Course: The patient was mostly unresponsive for a couple of days, she woke up a little bit one day but her mental status has declined again. She only has one lung, having had pneumonectomy on the left side several years ago, and she has likely aspirated on a combination of food, liquids, and oral secretions. She makes no attempt to cough or clear her throat. She had a large mass detected in her left breast, initially her family wanted a biopsy had to know what it was, but they have since declined to do so, citing their mother's wishes to have no aggressive care, and also due to the fact that this patient would not be able to tolerate any sort of cancer treatment. The daughter and granddaughter have decided to send her to inpatient hospice. A bed was obtained at [facility] the patient is being transferred there today. Physical Exam Vital Signs: Temp Pulse Resp BP Pulse Ox 97.6 F 111 H 36 H 96/52 L 95 02/07/19 10:49 02/07/19 14:00 02/07/19 10:49 02/07/19 10:49 02/07/19 10:49 Intake & Output 02/06/19 02/07/19 02/08/19 06:59 06:59 06:59 Intake Total 150 50 Output Total 0 Balance 150 50 Weight 40.5 kg 40.8 kg General appearance: PRESENT: Unresponsive, disheveled, hard of hearing, thin Respiratory exam: PRESENT: Rhonchi on the right- Breath sounds absent on the left side, unlabored. ABSENT: accessory muscle use, crackles, prolonged expira tory phas, symmetrical, tachypnea, wheezes Cardiovascular exam: PRESENT: RRR - With some occasional irregular beats, +S1, +S2 Breast exam: She has a firm, irregular, freely movable nodule in the lower lateral quadrant of the right breast, with what feels like some associated axillary adenopathy, this was nontender, no breast discharge Pulses: PRESENT: normal carotid pulses Vascular exam: PRESENT: normal capillary refill GI/Abdominal exam: PRESENT: normal bowel sounds, soft. ABSENT: distended, guarding, rebound, tenderness Extremities exam: ABSENT: clubbing, pedal edema Musculoskeletal exam: PRESENT: normal inspection. ABSENT: deformity Neurological exam: PRESENT: Unresponsive Results Laboratory Results: 02/03/19 07:02 02/05/19 07:19 02/02/19 02/02/19 14:09 14:09 Creatine Kinase 38 CK-MB (CK-2) 1.76 Troponin I < 0.012 Impressions: Head MRI 02/02/19 00:00 IMPRESSION: Positive for acute or sub-acute infarction in the right MCA distribution involving the anterior basal ganglia and frontotemporal regions including the insular cortex. EVIDENCE OF ACUTE STROKE: YES. RIGHT MCA. Chest X-Ray 02/02/19 13:59 IMPRESSION: 1. Stable chronic left pneumonectomy changes since the prior study dated 05/09/2017. 2. Prior granulomatous disease in the right lung. Mild chronic interstitial changes. No acute findings. Head CT 02/02/19 13:59 IMPRESSION: CHRONIC CHANGES OF ATROPHY AND MICROVASCULAR ISCHEMIA. NO ACUTE PROCESS. EVIDENCE OF ACUTE STROKE: NO. Carotid Doppler Study 02/03/19 00:00 IMPRESSION: NO HEMODYNAMICALLY SIGNIFICANT STENOSIS. Modified Barium Swallow 02/04/19 00:00 IMPRESSION: NO ASPIRATION SEEN. PLEASE SEE SPEECH PATHOLOGIST REPORT FOR OTHER FINDINGS AND RECOMMENDATIONS. Transfer Plan - Time Spent with Patient Time spent with patient: Greater than 30 Minutes Qualifiers - * PATIENT BEING DISCHARGED WITH ANY OF THE FOLLOWING DIAGNOSIS: Stroke Stroke Pt being discharged on Anti-thrombolytic therapy?: No Reason(s) for not prescribing Anti-thrombolytic therapy:: Comfort Measure Stroke Pt being discharged on Anti-coagulation therapy?: No Reason(s) for not prescribing Anti-coagulation therapy:: Comfort Measure Stroke Pt being discharged on Statins?: No Reason(s) for not prescribing Statins therapy:: Comfort Measure Plan Time Spent: Greater than 30 Minutes
[2019-02-07 19:35] VITALS: BP 100/37
== END 2019-02-07 19:30 | disposition hospice, inpatient (51) | DRG 65 ==
LOC: ER 13:57 → EH 15:24 → 3W 17:21
PROVIDERS: ADMIT Family Medicine; ATTEND Family Medicine
DX: I63.411 Cerebral infarction due to embolism of right middle cerebral artery (principal); G81.04 Flaccid hemiplegia affecting left nondominant side; N63.0 Unspecified lump in unspecified breast; Z66 Do not resuscitate; E78.5 Hyperlipidemia, unspecified; I10 Essential (primary) hypertension; J44.9 Chronic obstructive pulmonary disease, unspecified; F03.90 Unspecified dementia, unspecified severity, without behavioral disturbance, psychotic disturbance, mood disturbance, and anxiety; Z60.2 Problems related to living alone; Z90.2 Acquired absence of lung [part of]; Z99.81 Dependence on supplemental oxygen
CPT/HCPCS: 36415; 70450; 70551; 71045; 74230; 76641; 80048; 80053; 80061; 82550; 82553; 82962; 83036; 84484; 85025; 85027; 85610; 85730; 93005; 93010; 93880; 94640; 99285; J1644; J2060; J2270; J3480; J3490; J7620; S0028